=== PATIENT | female | born 1955 | race Caucasian/White ===

== ENCOUNTER 2018-02-16 06:11 | Day surgery (SDC) | payer MEDICARE ==
[~2018-02-16] VITALS: Ht 152.4 cm; Wt 102.2 kg
[2018-02-16 06:30] VITALS: BP 124/77
[2018-02-16] MEDS ORDERED: normal saline 1000ml 1,000 ML IV PRN (06:30)
[2018-02-16] MEDS ORDERED: BUPR100T16 PO (06:53)
[2018-02-16] MEDS ORDERED: ZOLP5TAB8 PO (06:53)
[2018-02-16] MEDS ORDERED: HYDR-4353 PO (06:53)
[2018-02-16] MEDS ORDERED: LISI40TA4 PO (06:53)
[2018-02-16] MEDS ORDERED: OXYB5TAB11 PO (06:53)
[2018-02-16] MEDS ORDERED: IBUP-1984 PO (06:53)
[2018-02-16] MEDS ORDERED: MODA200T48 PO (06:53)
[2018-02-16] MEDS ORDERED: PRAV40TA3 PO (06:53)
[2018-02-16] MEDS ORDERED: AMLO10TA PO (06:53)
[2018-02-16 07:18] LABS: ALBUMIN 3.4 G/DL (3.4-5.0); ANION GAP 8 (8-16); BLOOD UREA NITROGEN 17 MG/DL (7-18); BUN/CREATININE RATIO 18.9 (6.6-38.0); CALCIUM 8.8 MG/DL (8.5-10.1); CHLORIDE 108 MMOL/L (99-107); GLUCOSE 119 MG/DL (70-104); POTASSIUM 3.8 MMOL/L (3.5-5.1); SODIUM 142 MMOL/L (135-145); TOTAL CARBON DIOXIDE 26.1 MMOL/L (24-32); eGFR 63 ML/MIN
[2018-02-16 07:30] LABS: BASOPHILS % (AUTO) 0.4 % (0-1); EOSINOPHILS # (AUTO) 0.2 X10'3 (0-0.9); EOSINOPHILS % (AUTO) 2.4 % (0-6); LYMPHOCYTES # (AUTO) 2.5 X10'3 (1.1-4.8); LYMPHOCYTES % (AUTO) 32.6 % (21-51); MEAN CORPUSCULAR HEMOGLOBIN 30.8 PG (27.0-31.0); MEAN CORPUSCULAR HGB CONC 34.9 % (33.0-36.5); MEAN CORPUSCULAR VOLUME 88.2 FL (78-98); MEAN PLATELET VOLUME 9.1 FL (7.4-10.4); MONOCYTES # (AUTO) 0.9 X10'3 (0-0.9); MONOCYTES % (AUTO) 11.5 % (2-12); NEUTROPHILS # (AUTO) 4.2 X10'3 (1.8-7.7); NEUTROPHILS % (AUTO) 53.1 % (42-75); PRE OP HEMATOCRIT 39.9 % (35.0-45.0); PRE OP HEMOGLOBIN 13.9 g/dL (12.0-16.0); PRE OP PLATELET COUNT 192 X10'3 (140-440); RED BLOOD COUNT 4.52 X10'6 (4.20-5.60); RED CELL DISTRIBUTION WIDTH 14.5 % (11.5-14.5)
[2018-02-16] MEDS ORDERED: midazolam 2 mg/2 ml injection IV PRN (08:50)
[2018-02-16] MEDS ORDERED: LIDOcaine 1%/PF 5ML 10 MG/ML VIAL SQ ONE (08:50)
[2018-02-16] MEDS ORDERED: fentaNYL/PF 50MCG/1 ML 2ML syringe IV PRN (08:50)
[2018-02-16] MEDS ORDERED: heparin sodium, porcine/PF 100unit/ml 5ML syringe ICATH ONE (08:50)
[2018-02-16] MEDS ORDERED: heparin sodium, porcine/PF 100unit/ml 5ML syringe ONE (08:51)
[2018-02-16] MEDS ORDERED: fentaNYL/PF 50MCG/1 ML 2ML syringe ONE ×3 (08:52→09:42)
[2018-02-16] MEDS ORDERED: LIDOcaine 0.5% (5mg/ml) 50ml vial ONE (08:52)
[2018-02-16] MEDS ORDERED: midazolam 2 mg/2 ml injection ONE ×2 (08:52→09:18)
[2018-02-16] MEDS ORDERED: LIDOcaine 1% (10mg/ml) 2ml vial ONE (09:40)
[2018-02-16 10:20] VITALS: BP 143/56
[2018-02-16 10:39] VITALS: BP 103/51
[2018-02-16 10:54] VITALS: BP 123/67
[2018-02-16 11:09] VITALS: BP 138/72
[2018-02-16 11:39] VITALS: BP 132/65
== END 2018-02-16 11:50 | disposition home or self-care (01) ==
LOC: SSTAY O 06:11
PROVIDERS: ATTEND Radiology Diagnostic Radiology
DX: T82.594A Other mechanical complication of infusion catheter, initial encounter (principal); Y83.8 Other surgical procedures as the cause of abnormal reaction of the patient, or of later complication, without mention of misadventure at the time of the procedure; Y92.89 Other specified places as the place of occurrence of the external cause; G35 Multiple sclerosis; I10 Essential (primary) hypertension; G47.33 Obstructive sleep apnea (adult) (pediatric); M19.90 Unspecified osteoarthritis, unspecified site; E11.9 Type 2 diabetes mellitus without complications; Z72.89 Other problems related to lifestyle; Z86.73 Personal history of transient ischemic attack (TIA), and cerebral infarction without residual deficits; Z90.710 Acquired absence of both cervix and uterus; Z96.698 Presence of other orthopedic joint implants; Z91.040 Latex allergy status; Z91.018 Allergy to other foods; Z79.891 Long term (current) use of opiate analgesic; Z79.1 Long term (current) use of non-steroidal anti-inflammatories (NSAID); Z79.899 Other long term (current) drug therapy; Z98.890 Other specified postprocedural states; Z88.8 Allergy status to other drugs, medicaments and biological substances
CPT/HCPCS: 36415; 36561; 36590; 76937; 77001; 80048; 85025; 99152; 99153; C1788; C1894; J1642; J2001; J2250; J3010; J3490; J7030; A4620

== ENCOUNTER 2018-03-10 06:36 | Inpatient (IN) | payer MEDICARE ==
[2018-03-09 14:59] LABS: BASOPHILS # (AUTO) 0.1 X10'3 (0-0.2); EOSINOPHILS # (AUTO) 0.3 X10'3 (0-0.9); LYMPHOCYTES # (AUTO) 3.5 X10'3 (1.1-4.8); LYMPHOCYTES % (AUTO) 37.1 % (21-51); MEAN CORPUSCULAR HEMOGLOBIN 30.2 PG (27.0-31.0); MEAN CORPUSCULAR HGB CONC 33.6 % (33.0-36.5); MEAN CORPUSCULAR VOLUME 89.9 FL (78-98); MEAN PLATELET VOLUME 8.8 FL (7.4-10.4); MONOCYTES # (AUTO) 1.4 X10'3 (0-0.9); MONOCYTES % (AUTO) 14.5 % (2-12); NEUTROPHILS # (AUTO) 4.2 X10'3 (1.8-7.7); NEUTROPHILS % (AUTO) 44.4 % (42-75); PRE OP HEMATOCRIT 45.2 % (35.0-45.0); PRE OP HEMOGLOBIN 15.2 g/dL (12.0-16.0); PRE OP PLATELET COUNT 193 X10'3 (140-440); RED BLOOD COUNT 5.03 X10'6 (4.20-5.60); RED CELL DISTRIBUTION WIDTH 15.2 % (11.5-14.5)
[2018-03-09 15:14] LABS: ALBUMIN 4.2 G/DL (3.4-5.0); ALBUMIN/GLOBULIN RATIO 1.4 (1.1-1.5); ALKALINE PHOSPHATASE 107 IU/L (46-116); BLOOD UREA NITROGEN 22 MG/DL (7-18); BUN/CREATININE RATIO 16.5 (6.6-38.0); CHLORIDE 101 MMOL/L (99-107); CREATININE 1.33 MG/DL (0.40-0.90); PRE OP ALT 47 U/L (30-65); PRE OP ANION GAP 7 (8-16); PRE OP AST 26 U/L (10-37); PRE OP BILIRUB, TOTAL 0.6 MG/DL (0.0-1.0); PRE OP GLUCOSE 100 MG/DL (70-104); PRE OP POTASSIUM 4.3 MMOL/L (3.4-5.1); PRE OP SODIUM 137 MMOL/L (135-145); TOTAL CARBON DIOXIDE 28.9 MMOL/L (24-32); TOTAL PROTEIN 7.1 G/DL (6.4-8.2); eGFR 40 ML/MIN
[~2018-03-10] VITALS: Ht 152.4 cm; Wt 99.8 kg
[2018-03-10] VITALS (22 sets, daily range): BP systolic 104–140; BP diastolic 58–78
[~2018-03-10 06:36] MED LIST: AMLO10TA PO; BUPR100T16 PO; LISI40TA4 PO; MODA200T48 PO; MUPI22OI30 TP; NATA300V2 IV; OXYB5TAB11 PO; PRAV40TA3 PO; VANCOMYCIN INJ 1000 MG in NORMAL SALINE 250ml IV.SOLN IV ONE; ZOLP5TAB8 PO; cefazolin/dext.iso 2gm/100 ML IV ONE; famotidine 20mg tablet PO ONE; ringers solution, lacted 1,000 ML IV SCH; tranexamic acid inj. 1,000 MG in normal saline 100ml IV soln 90 ML IV ONE
[2018-03-10] MEDS ORDERED: ROPIVAcaine 0.5% (5mg/ml) 30ml vial ONE ×2 (08:43→09:29)
[2018-03-10] MEDS ORDERED: cloNIDine hcl/PF 100mcg/ml inj ONE (08:43)
[2018-03-10] MEDS ORDERED: midazolam 2 mg/2 ml injection ONE (08:49)
[2018-03-10] MEDS ORDERED: fentaNYL /PF 50mcg/ml 5ml ampule ONE (08:49)
[2018-03-10] MEDS ORDERED: propofol inj 20 ML IV ONE (08:53)
[2018-03-10] MEDS ORDERED: ondansetron/PF 4mg/2ml inj ONE (08:53)
[2018-03-10] MEDS ORDERED: dexamethasone sod phosphate 4mg/ml inj. ONE (08:53)
[2018-03-10] MEDS ORDERED: LIDOcaine 2% (20mg/ml) 5ml vial ONE (08:53)
[2018-03-10] MEDS ORDERED: rocuronium 10mg/ml inj IV ONE (08:54)
[2018-03-10] MEDS ORDERED: vancomycin 1,000mg inj ONE (09:28)
[2018-03-10] MEDS ORDERED: ketorolac trometh. 30mg/ml inj. ONE (09:29)
[2018-03-10] MEDS ORDERED: sevoflurane 250ml liquid IH ONE (09:40)
[2018-03-10] MEDS ORDERED: tranexamic acid inj. 1,000 MG in normal saline 100ml IV soln 90 ML IV ONE ×4 (09:50)
[2018-03-10] MEDS ORDERED: ringers solution, lacted 1,000 ML IV SCH (10:28)
[2018-03-10] MEDS ORDERED: labetalol 20mg/4ml (5mg/ml) syringe IV PRN (10:30)
[2018-03-10] MEDS ORDERED: hydrALAZINE 20mg/ml inj. IV PRN (10:30)
[2018-03-10] MEDS ORDERED: fentaNYL/PF 50MCG/1 ML 2ML syringe IV PRN (10:30)
[2018-03-10] MEDS ORDERED: ondansetron/PF 4mg/2ml inj IV PRN ×2 (10:30→12:40)
[2018-03-10] MEDS ORDERED: morphine 4 MG/ML inj SYRINge IV PRN (10:30)
[2018-03-10] MEDS ORDERED: acetaminophen 325mg tablet PO PRN (12:40)
[2018-03-10] MEDS ORDERED: bisacodyl 10mg suppository rectal RC PRN (12:40)
[2018-03-10] MEDS ORDERED: oxyCODONE IR 5mg (immed. release) tablet PO PRN (12:40)
[2018-03-10] MEDS ORDERED: magnesium hydroxide 30ml (MOM) UD suspension PO PRN (12:40)
[2018-03-10] MEDS ORDERED: diphenhydrAMINE 25mg capsule PO PRN ×2 (12:40)
[2018-03-10] MEDS ORDERED: mupirocin 2% ointment 22GM TP PRN (12:40)
[2018-03-10] MEDS: fentaNYL/PF 50MCG/1 ML 2ML syringe IV PRN ×2 (12:44→13:01)
[2018-03-10] MEDS: morphine 4 MG/ML inj SYRINge IV PRN ×2 (13:17→13:33)
[2018-03-10] MEDS ORDERED: ketorolac tromethamine 15mg/ml inj. IV SCH (14:00)
[2018-03-10] MEDS ORDERED: tranexamic acid inj. 1,000 MG in normal saline 100ml IV soln 100 ML IV ONE (15:30)
[2018-03-10] MEDS: gabapentin 300mg capsule PO SCH ×2 (15:32→21:34)
[2018-03-10] MEDS: potassium cl 20mEq in 1/2 NS 1,000 ML IV SCH ×2 (16:14→20:39)
[2018-03-10] MEDS: acetaminophen 325mg tablet PO SCH ×2 (16:16→21:33)
[2018-03-10] MEDS: ceFAZolin 1GM/D5W- ADD-VANTAGE 50 ML IV SCH (17:54)
[2018-03-10] MEDS: oxyCODONE IR 5mg (immed. release) tablet PO PRN ×2 (19:13→22:50)
[2018-03-10] MEDS ORDERED: vancomycin/NS 1 GM ADD-VANTAGE 250 ML IV SCH (20:00)
[2018-03-10] MEDS: sennosides 8.6mg tablet PO SCH (21:34)
[2018-03-10] MEDS: pravastatin 40mg tablet PO SCH (21:34)
[2018-03-10] MEDS: zolpidem 5mg tablet PO PRN (21:54)
[2018-03-10] MEDS ORDERED: glucagon, human recombinant 1mg kit SUBCUT PRN (23:30)
[2018-03-10] MEDS ORDERED: dextrose 50%-water 50ml dispensing syringe IV PRN ×2 (23:30)
[2018-03-10] MEDS ORDERED: dextrose ORAL solution 15 GM/59 ML bottle PO PRN ×2 (23:30)
[2018-03-11] MEDS: ceFAZolin 1GM/D5W- ADD-VANTAGE 50 ML IV SCH (00:11)
[2018-03-11] MEDS: insulin glargine (Lantus) pen - multi-dose SQ SCH ×2 (00:16→21:03)
[2018-03-11 02:00] VITALS: BP 106/53
[2018-03-11] MEDS: acetaminophen 325mg tablet PO SCH ×4 (02:21→19:35)
[2018-03-11] MEDS: potassium cl 20mEq in 1/2 NS 1,000 ML IV SCH ×3 (02:22→19:36)
[2018-03-11 04:53] LABS: BASOPHILS % (AUTO) 0.1 % (0-1); EOSINOPHILS % (AUTO) 0 % (0-6); HEMATOCRIT 33.5 % (35.0-45.0); HEMOGLOBIN 11.3 g/dl (12.0-16.0); LYMPHOCYTES % (AUTO) 13.2 % (21-51); MEAN CORPUSCULAR HEMOGLOBIN 30.3 PG (27.0-31.0); MEAN CORPUSCULAR HGB CONC 33.7 % (33.0-36.5); MEAN CORPUSCULAR VOLUME 89.9 FL (78-98); MEAN PLATELET VOLUME 9.2 FL (7.4-10.4); MONOCYTES # (AUTO) 1.5 X10'3 (0-0.9); MONOCYTES % (AUTO) 9.7 % (2-12); NEUTROPHILS # (AUTO) 11.8 X10'3 (1.8-7.7); PLATELET COUNT 144 X10'3 (140-440); RED BLOOD COUNT 3.73 X10'6 (4.20-5.60); RED CELL DISTRIBUTION WIDTH 14.8 % (11.5-14.5); WHITE BLOOD COUNT 15.3 X10'3 (4.5-11.0)
[2018-03-11 05:16] LABS: ANION GAP 6 (8-16); CHLORIDE 106 MMOL/L (99-107); POTASSIUM 4.7 MMOL/L (3.5-5.1); SODIUM 138 MMOL/L (135-145); TOTAL CARBON DIOXIDE 25.9 MMOL/L (24-32)
[2018-03-11] MEDS: oxyCODONE IR 5mg (immed. release) tablet PO PRN ×5 (05:31→21:54)
[2018-03-11 06:00] VITALS: BP 105/52
[2018-03-11] MEDS: amLODIPine 5mg tablet PO SCH (08:00)
[2018-03-11] MEDS ORDERED: buPROPion 100mg tablet PO SCH (08:00)
[2018-03-11] MEDS ORDERED: oxybutynin 5mg tablet PO SCH (08:00)
[2018-03-11] MEDS: modafinil 100mg tablet PO SCH (08:00)
[2018-03-11] MEDS: lisinopril 20mg tablet PO SCH (08:00)
[2018-03-11] MEDS: aspirin 325mg tablet PO SCH (08:35)
[2018-03-11] MEDS: gabapentin 300mg capsule PO SCH ×3 (08:37→20:52)
[2018-03-11] MEDS: buPROPion SR 150mg tablet PO SCH ×2 (08:38→19:35)
[2018-03-11] MEDS: insulin Lispro (HumaLOG) vial - multi-dose SQ SCH ×3 (08:52→18:43)
[2018-03-11 10:00] VITALS: BP 105/69
[2018-03-11] MEDS ORDERED: OXYB10TA PO (12:10)
[2018-03-11 17:00] VITALS: BP 116/58
[2018-03-11] MEDS: celeCOXIB 100mg capsule PO SCH (19:35)
[2018-03-11] MEDS: HYDROmorphone 1 mg/ml syringe IV PRN (19:43)
[2018-03-11] MEDS: pravastatin 40mg tablet PO SCH (20:53)
[2018-03-11] MEDS: sennosides 8.6mg tablet PO SCH (20:53)
[2018-03-11 22:00] VITALS: BP 108/50
[2018-03-12] MEDS: oxyCODONE IR 5mg (immed. release) tablet PO PRN ×6 (01:43→22:28)
[2018-03-12] MEDS: acetaminophen 325mg tablet PO SCH ×2 (01:43→07:25)
[2018-03-12] MEDS: HYDROmorphone 1 mg/ml syringe IV PRN ×3 (02:53→20:13)
[2018-03-12 05:59] LABS: BASOPHILS # (AUTO) 0.1 X10'3 (0-0.2); BASOPHILS % (AUTO) 0.5 % (0-1); EOSINOPHILS # (AUTO) 0.1 X10'3 (0-0.9); EOSINOPHILS % (AUTO) 0.8 % (0-6); HEMATOCRIT 33.3 % (35.0-45.0); HEMOGLOBIN 11.2 g/dl (12.0-16.0); LYMPHOCYTES # (AUTO) 3.2 X10'3 (1.1-4.8); LYMPHOCYTES % (AUTO) 28.8 % (21-51); MEAN CORPUSCULAR HEMOGLOBIN 30.5 PG (27.0-31.0); MEAN CORPUSCULAR HGB CONC 33.6 % (33.0-36.5); MEAN CORPUSCULAR VOLUME 90.8 FL (78-98); MEAN PLATELET VOLUME 9.8 FL (7.4-10.4); MONOCYTES # (AUTO) 1.2 X10'3 (0-0.9); NEUTROPHILS # (AUTO) 6.5 X10'3 (1.8-7.7); NEUTROPHILS % (AUTO) 58.9 % (42-75); PLATELET COUNT 143 X10'3 (140-440); RED BLOOD COUNT 3.66 X10'6 (4.20-5.60); RED CELL DISTRIBUTION WIDTH 15.3 % (11.5-14.5); WHITE BLOOD COUNT 11.1 X10'3 (4.5-11.0)
[2018-03-12 06:00] VITALS: BP 109/55
[2018-03-12] MEDS: celeCOXIB 100mg capsule PO SCH ×2 (07:24→20:10)
[2018-03-12] MEDS: buPROPion SR 150mg tablet PO SCH ×2 (07:25→20:10)
[2018-03-12] MEDS: gabapentin 300mg capsule PO SCH ×3 (07:25→20:10)
[2018-03-12] MEDS: oxybutynin 5mg tablet PO SCH ×2 (07:25→20:10)
[2018-03-12] MEDS: amLODIPine 5mg tablet PO SCH (07:26)
[2018-03-12] MEDS: modafinil 100mg tablet PO SCH (07:26)
[2018-03-12] MEDS: lisinopril 20mg tablet PO SCH (07:26)
[2018-03-12] MEDS: insulin Lispro (HumaLOG) vial - multi-dose SQ SCH ×2 (08:33→19:03)
[2018-03-12] MEDS: aspirin 325mg tablet PO SCH (08:36)
[2018-03-12 10:00] VITALS: BP 121/93
[2018-03-12] MEDS ORDERED: acetaminophen 325mg tablet PO PRN (12:40)
[2018-03-12 17:00] VITALS: BP 111/57
[2018-03-12] MEDS: pravastatin 40mg tablet PO SCH (20:10)
[2018-03-12] MEDS: sennosides 8.6mg tablet PO SCH (20:10)
[2018-03-12] MEDS: insulin glargine (Lantus) pen - multi-dose SQ SCH (21:25)
[2018-03-12 22:00] VITALS: BP 107/55
[2018-03-13] MEDS: oxyCODONE IR 5mg (immed. release) tablet PO PRN ×4 (01:59→20:27)
[2018-03-13 06:12] LABS: BASOPHILS # (AUTO) 0.2 X10'3 (0-0.2); BASOPHILS % (AUTO) 1.5 % (0-1); EOSINOPHILS # (AUTO) 0.3 X10'3 (0-0.9); EOSINOPHILS % (AUTO) 2.6 % (0-6); HEMATOCRIT 32.9 % (35.0-45.0); HEMOGLOBIN 11.1 g/dl (12.0-16.0); LYMPHOCYTES # (AUTO) 3.1 X10'3 (1.1-4.8); LYMPHOCYTES % (AUTO) 27.2 % (21-51); MEAN CORPUSCULAR HEMOGLOBIN 30.8 PG (27.0-31.0); MEAN CORPUSCULAR HGB CONC 33.8 % (33.0-36.5); MEAN PLATELET VOLUME 10.1 FL (7.4-10.4); MONOCYTES # (AUTO) 1.3 X10'3 (0-0.9); MONOCYTES % (AUTO) 11.7 % (2-12); NEUTROPHILS # (AUTO) 6.5 X10'3 (1.8-7.7); PLATELET COUNT 134 X10'3 (140-440); RED BLOOD COUNT 3.62 X10'6 (4.20-5.60); WHITE BLOOD COUNT 11.4 X10'3 (4.5-11.0)
[2018-03-13 06:50] VITALS: BP 113/64
[2018-03-13] MEDS: HYDROmorphone 1 mg/ml syringe IV PRN ×2 (07:03→21:23)
[2018-03-13 07:17] LABS: ANISOCYTOSIS 1+; NUCLEATED RED BLOOD CELLS 2 /100WBC (0-0); PLATELET ESTIMATE DECREASED; TOTAL CELLS COUNTED 100
[2018-03-13] MEDS: lisinopril 20mg tablet PO SCH (07:59)
[2018-03-13] MEDS: oxybutynin 5mg tablet PO SCH ×2 (07:59→20:25)
[2018-03-13] MEDS: buPROPion SR 150mg tablet PO SCH ×2 (08:00→20:26)
[2018-03-13] MEDS: aspirin 325mg tablet PO SCH (08:00)
[2018-03-13] MEDS: modafinil 100mg tablet PO SCH (08:00)
[2018-03-13] MEDS: celeCOXIB 100mg capsule PO SCH ×2 (08:00→20:25)
[2018-03-13] MEDS: gabapentin 300mg capsule PO SCH ×3 (08:01→20:25)
[2018-03-13] MEDS: amLODIPine 5mg tablet PO SCH (08:02)
[2018-03-13 10:00] VITALS: BP 125/58
[2018-03-13 18:00] VITALS: BP 129/65
[2018-03-13] MEDS: insulin glargine (Lantus) pen - multi-dose SQ SCH (20:24)
[2018-03-13] MEDS: pravastatin 40mg tablet PO SCH (20:25)
[2018-03-13] MEDS: zolpidem 5mg tablet PO PRN (20:25)
[2018-03-13] MEDS: sennosides 8.6mg tablet PO SCH (20:25)
[2018-03-13 21:38] VITALS: BP 122/64
[2018-03-14] MEDS: oxyCODONE IR 5mg (immed. release) tablet PO PRN ×3 (01:34→11:52)
[2018-03-14 05:00] VITALS: BP 106/61
[2018-03-14] MEDS: oxybutynin 5mg tablet PO SCH (08:30)
[2018-03-14] MEDS: buPROPion SR 150mg tablet PO SCH (08:30)
[2018-03-14] MEDS: lisinopril 20mg tablet PO SCH (08:30)
[2018-03-14] MEDS: celeCOXIB 100mg capsule PO SCH (08:30)
[2018-03-14] MEDS: aspirin 325mg tablet PO SCH (08:31)
[2018-03-14] MEDS: amLODIPine 5mg tablet PO SCH (08:31)
[2018-03-14] MEDS: gabapentin 300mg capsule PO SCH ×2 (08:31→11:51)
[2018-03-14] MEDS: HYDROmorphone 1 mg/ml syringe IV PRN ×2 (08:40→14:06)
[2018-03-14 10:00] VITALS: BP_SYST 100; BP_SYST 94; BP_DIAS 38; BP_DIAS 62
[2018-03-14] MEDS ORDERED: heparin sodium, porcine/PF 100unit/ml 5ML syringe ICATH ONE (18:15)
[2018-03-27] MEDS ORDERED: NATALIZUMAB 300 MG IV SCH (08:00)
== END 2018-03-14 18:25 | DRG 470 ==
LOC: PAS IN 06:36 → EDSTATUS 09:00 → ORTHO 4S 14:20
PROVIDERS: ADMIT Orthopaedic Surgery; ATTEND Orthopaedic Surgery
PROC: 8E0YXBZ Computer Assisted Procedure of Lower Extremity (ICD-10-PCS; 2018-03-10)
PROC: 8E0Y0CZ Robotic Assisted Procedure of Lower Extremity, Open Approach (ICD-10-PCS; 2018-03-10)
PROC: 3E0T3BZ Introduction of Anesthetic Agent into Peripheral Nerves and Plexi, Percutaneous Approach (ICD-10-PCS; 2018-03-10)
PROC: 0SRC0J9 Replacement of Right Knee Joint with Synthetic Substitute, Cemented, Open Approach (ICD-10-PCS; principal; 2018-03-10 09:45)
PROC: 5A09357 Assistance with Respiratory Ventilation, Less than 24 Consecutive Hours, Continuous Positive Airway Pressure (ICD-10-PCS; 2018-03-12)
PROC: 5A09357 Assistance with Respiratory Ventilation, Less than 24 Consecutive Hours, Continuous Positive Airway Pressure (ICD-10-PCS; 2018-03-13)
DX: M17.11 Unilateral primary osteoarthritis, right knee (principal); D62 Acute posthemorrhagic anemia; Z68.41 Body mass index [BMI] 40.0-44.9, adult; E78.5 Hyperlipidemia, unspecified; G47.30 Sleep apnea, unspecified; M25.761 Osteophyte, right knee; M21.161 Varus deformity, not elsewhere classified, right knee; E66.9 Obesity, unspecified; E11.22 Type 2 diabetes mellitus with diabetic chronic kidney disease; N18.3 Chronic kidney disease, stage 3 (moderate); G35 Multiple sclerosis; I12.9 Hypertensive chronic kidney disease with stage 1 through stage 4 chronic kidney disease, or unspecified chronic kidney disease; F32.9 Major depressive disorder, single episode, unspecified; Z98.891 History of uterine scar from previous surgery; Z90.710 Acquired absence of both cervix and uterus; Z90.49 Acquired absence of other specified parts of digestive tract; Z99.81 Dependence on supplemental oxygen; Z88.8 Allergy status to other drugs, medicaments and biological substances; Z91.040 Latex allergy status; Z79.899 Other long term (current) drug therapy; Z86.73 Personal history of transient ischemic attack (TIA), and cerebral infarction without residual deficits
CPT/HCPCS: 36415; 80051; 80053; 82948; 83036; 85025; 87070; 97110; 97116; 97161; 97530; A6455; A7000; C1713; C1758; C1776; G0378; J0690; J0735; J1100; J1170; J1642; J1815; J1885; J2001; J2250; J2270; J2405; J2704; J2795; J3010; J3370; J7030; J7120

== ENCOUNTER 2018-04-01 13:35 | Inpatient (IN) | payer MEDICARE ==
[~2018-04-01] VITALS: Ht 152.4 cm; Wt 100.5 kg
[~2018-04-01 13:35] MED LIST changes: +OXYB10TA PO; -OXYB5TAB11 PO; -VANCOMYCIN INJ 1000 MG in NORMAL SALINE 250ml IV.SOLN IV ONE; -cefazolin/dext.iso 2gm/100 ML IV ONE; -famotidine 20mg tablet PO ONE; -ringers solution, lacted 1,000 ML IV SCH; -tranexamic acid inj. 1,000 MG in normal saline 100ml IV soln 90 ML IV ONE
[2018-04-01] MEDS ORDERED: ondansetron 4mg rapidly disintigrating tab PO ONE (14:05)
[2018-04-01] MEDS ORDERED: meclizine 12.5mg tablet PO ONE (14:05)
[2018-04-01 14:47] LABS: BASOPHILS # (AUTO) 0.1 X10'3 (0-0.2); BASOPHILS % (AUTO) 0.5 % (0-1); EOSINOPHILS # (AUTO) 0.2 X10'3 (0-0.9); EOSINOPHILS % (AUTO) 1.9 % (0-6); HEMATOCRIT 38.3 % (35.0-45.0); HEMOGLOBIN 12.9 g/dl (12.0-16.0); LYMPHOCYTES # (AUTO) 2.5 X10'3 (1.1-4.8); LYMPHOCYTES % (AUTO) 20.9 % (21-51); MEAN CORPUSCULAR HEMOGLOBIN 29.9 PG (27.0-31.0); MEAN CORPUSCULAR HGB CONC 33.6 % (33.0-36.5); MEAN CORPUSCULAR VOLUME 88.8 FL (78-98); MEAN PLATELET VOLUME 8.7 FL (7.4-10.4); MONOCYTES # (AUTO) 1.2 X10'3 (0-0.9); MONOCYTES % (AUTO) 10.1 % (2-12); NEUTROPHILS # (AUTO) 7.8 X10'3 (1.8-7.7); NEUTROPHILS % (AUTO) 66.6 % (42-75); PLATELET COUNT 283 X10'3 (140-440); RED BLOOD COUNT 4.31 X10'6 (4.20-5.60); RED CELL DISTRIBUTION WIDTH 14.2 % (11.5-14.5); WHITE BLOOD COUNT 11.8 X10'3 (4.5-11.0)
[2018-04-01] MEDS ORDERED: morphine 4 MG/ML inj SYRINge IV ONE ×2 (15:35→16:50)
[2018-04-01 15:44] LABS: ALANINE AMINOTRANSFERASE 32 U/L (12-78); ALBUMIN 3.4 G/DL (3.4-5.0); ALKALINE PHOSPHATASE 124 IU/L (46-116); ANION GAP 11 (8-16); ASPARTATE AMINO TRANSFERASE 19 U/L (10-37); BILIRUBIN,TOTAL 0.5 MG/DL (0.1-1.0); BLOOD UREA NITROGEN 17 MG/DL (7-18); BUN/CREATININE RATIO 17.7 (6.6-38.0); CALCIUM 9.8 MG/DL (8.5-10.1); CHLORIDE 105 MMOL/L (99-107); CREATININE 0.96 MG/DL (0.40-0.90); GLUCOSE 123 MG/DL (70-104); POTASSIUM 4.2 MMOL/L (3.5-5.1); SODIUM 141 MMOL/L (135-145); TOTAL CARBON DIOXIDE 24.9 MMOL/L (24-32); TOTAL PROTEIN 6.8 G/DL (6.4-8.2); eGFR 59 ML/MIN
[2018-04-01 15:48] LABS: LIPASE 71 U/L (73-393); TROPONIN I < 0.04 NG/ML (0.0-0.05)
[2018-04-01 17:04] LABS: CLARITY,URINE CLOUDY (Clear); COLOR,URINE YELLOW (Yellow); GLUCOSE, URINE NEGATIVE (Neg); KETONES,URINE NEGATIVE (Neg); LEUKOCYTE ESTERASE ,URINE TRACE (Neg); NITRITES, URINE POSITIVE (Neg); OCCULT BLOOD,URINE NEGATIVE (Neg); PH,URINE 8.5 (4.8-8.0); PROTEIN,URINE NEGATIVE (Neg); UROBILINOGEN,URINE 0.2 E.U/dL (0.2-1.0)
[2018-04-01 17:05] LABS: UA COLLECTION TYPE FOLEY CATH
[2018-04-01 17:10] LABS: BACTERIA,URINE 4+ /HPF (Neg); MUCUS STRANDS NONE SEEN /LPF (Neg); RBC,URINE NONE SEEN /HPF (0-2); SQUAMOUS EPITHELIAL CELL,UR NONE SEEN /LPF (FEW); WBC CLUMPS,URINE FEW /HPF (NEGATIVE); WBC,URINE 30-50 /HPF (0-4)
[2018-04-01] MEDS ORDERED: CefTRIAXone 2gm/D5W 50ml 50 ML IV ONE (17:20)
[2018-04-01] MEDS ORDERED: iohexol 350MG/ML 100ml bottle IV ONE (18:23)
[2018-04-01] MEDS ORDERED: LORazepam 2 mg/ml vial IV ONE (20:00)
[2018-04-01] MEDS ORDERED: temazepam 15mg capsule PO PRN (21:00)
[2018-04-01] MEDS ORDERED: zolpidem 5mg tablet PO PRN (23:50)
[2018-04-01] MEDS ORDERED: metoclopramide 5 mg/ml inj IV PRN (23:50)
[2018-04-01] MEDS ORDERED: mag hydrox/Alum hydrox/simeth 30ml oral suspension PO PRN (23:50)
[2018-04-01] MEDS ORDERED: diphenhydrAMINE 25mg capsule PO PRN (23:50)
[2018-04-01] MEDS ORDERED: ondansetron/PF 4mg/2ml inj IV PRN (23:50)
[2018-04-01] MEDS ORDERED: bisacodyl 10mg suppository rectal RC PRN (23:50)
[2018-04-01] MEDS ORDERED: acetaminophen 650mg rectal suppository RC PRN (23:50)
[2018-04-01] MEDS ORDERED: HYDROmorphone 1 mg/ml syringe IV PRN (23:50)
[2018-04-01] MEDS ORDERED: diphenhydrAMINE 50 mg/ml inj IV PRN (23:50)
[2018-04-01] MEDS ORDERED: acetaminophen 325mg tablet PO PRN (23:50)
[2018-04-01] MEDS ORDERED: mupirocin 2% nasal ointment 1gm UD NS PRN (23:50)
[2018-04-01] MEDS ORDERED: magnesium hydroxide 30ml (MOM) UD suspension PO PRN (23:50)
[2018-04-02 01:00] LABS: MAGNESIUM 2.2 MG/DL (1.5-2.4); PHOSPHORUS 1.5 MG/DL (2.3-4.5)
[2018-04-02] MEDS: normal saline 1000ml 1,000 ML IV SCH ×3 (02:08→13:05)
[2018-04-02] MEDS: heparin, porcine 5000 units/ml vial SQ SCH ×3 (02:09→21:22)
[2018-04-02] MEDS ORDERED: ketorolac trometh. 30mg/ml inj. IV PRN (03:50)
[2018-04-02] MEDS: CefTRIAXone/D5W-Rocephin 1gm 50 ML IV SCH ×2 (07:59→21:18)
[2018-04-02] MEDS: amLODIPine 5mg tablet PO SCH (08:00)
[2018-04-02] MEDS: oxybutynin 5mg tablet PO SCH ×2 (08:00→21:23)
[2018-04-02] MEDS: Neutra Phos packet PO SCH ×3 (08:00→21:21)
[2018-04-02] MEDS ORDERED: buPROPion SR 150mg tablet PO SCH (08:00)
[2018-04-02] MEDS: docusate sod 100mg capsule PO SCH ×2 (08:03→21:22)
[2018-04-02] MEDS: lisinopril 20mg tablet PO SCH (08:03)
[2018-04-02] MEDS: morphine 2 MG/ML inj. syringe IV PRN (08:07)
[2018-04-02 09:08] LABS: BASOPHILS % (AUTO) 0.5 % (0-1); EOSINOPHILS # (AUTO) 0.3 X10'3 (0-0.9); EOSINOPHILS % (AUTO) 2.8 % (0-6); HEMATOCRIT 34.8 % (35.0-45.0); HEMOGLOBIN 11.8 g/dl (12.0-16.0); LYMPHOCYTES # (AUTO) 2.8 X10'3 (1.1-4.8); LYMPHOCYTES % (AUTO) 31.2 % (21-51); MEAN CORPUSCULAR HEMOGLOBIN 29.9 PG (27.0-31.0); MEAN CORPUSCULAR HGB CONC 33.8 % (33.0-36.5); MEAN CORPUSCULAR VOLUME 88.5 FL (78-98); MEAN PLATELET VOLUME 8.7 FL (7.4-10.4); MONOCYTES % (AUTO) 11.5 % (2-12); NEUTROPHILS # (AUTO) 4.9 X10'3 (1.8-7.7); PLATELET COUNT 255 X10'3 (140-440); RED BLOOD COUNT 3.94 X10'6 (4.20-5.60); RED CELL DISTRIBUTION WIDTH 14.9 % (11.5-14.5); WHITE BLOOD COUNT 9.1 X10'3 (4.5-11.0)
[2018-04-02 09:24] LABS: ALANINE AMINOTRANSFERASE 105 U/L (12-78); ALKALINE PHOSPHATASE 208 IU/L (46-116); ANION GAP 9 (8-16); ASPARTATE AMINO TRANSFERASE 64 U/L (10-37); BILIRUBIN,TOTAL 0.4 MG/DL (0.1-1.0); BLOOD UREA NITROGEN 17 MG/DL (7-18); BUN/CREATININE RATIO 14.9 (6.6-38.0); CALCIUM 8.9 MG/DL (8.5-10.1); CHLORIDE 106 MMOL/L (99-107); CHOL/HDL RATIO 2.6 (0.00-4.99); CHOLESTEROL 121 MG/DL (0-200); CREATININE 1.14 MG/DL (0.40-0.90); GLUCOSE 118 MG/DL (70-104); HDL CHOLESTEROL 46 MG/DL (35-60); LDL CHOLESTEROL 58 MG/DL (50-100); POTASSIUM 4.3 MMOL/L (3.5-5.1); SODIUM 141 MMOL/L (135-145); TOTAL CARBON DIOXIDE 25.6 MMOL/L (24-32); TRIGLYCERIDES 97 MG/DL (20-135); eGFR 48 ML/MIN
[2018-04-02 09:25] LABS: PARTIAL THROMBOPLASTIN TIME 29 SECONDS (22-32); PROTHROMBIN TIME 10.3 SECONDS (9.0-12.0)
[2018-04-02 12:10] VITALS: BP 111/61
[2018-04-02] MEDS: HYDROcodone/acetaminophen 10/325mg tab PO PRN ×2 (13:05→18:03)
[2018-04-02] MEDS ORDERED: BUPR300T86 PO (13:23)
[2018-04-02 20:00] VITALS: BP 120/58
[2018-04-02] MEDS: pravastatin 40mg tablet PO SCH (21:23)
[2018-04-02] MEDS: buPROPion SR 150mg tablet PO SCH (21:23)
[2018-04-03] VITALS: BP 118/55
[2018-04-03] MEDS: morphine 2 MG/ML inj. syringe IV PRN (00:24)
[2018-04-03] MEDS: normal saline 1000ml 1,000 ML IV SCH ×3 (00:25→23:00)
[2018-04-03] MEDS: HYDROcodone/acetaminophen 10/325mg tab PO PRN ×4 (02:41→19:49)
[2018-04-03 06:18] LABS: BASOPHILS % (AUTO) 0.2 % (0-1); EOSINOPHILS # (AUTO) 0.4 X10'3 (0-0.9); EOSINOPHILS % (AUTO) 5.9 % (0-6); HEMATOCRIT 31.7 % (35.0-45.0); HEMOGLOBIN 10.5 g/dl (12.0-16.0); LYMPHOCYTES # (AUTO) 2.2 X10'3 (1.1-4.8); LYMPHOCYTES % (AUTO) 30.1 % (21-51); MEAN CORPUSCULAR HEMOGLOBIN 29.8 PG (27.0-31.0); MEAN CORPUSCULAR HGB CONC 33.1 % (33.0-36.5); MEAN CORPUSCULAR VOLUME 89.9 FL (78-98); MONOCYTES # (AUTO) 0.9 X10'3 (0-0.9); MONOCYTES % (AUTO) 12.2 % (2-12); NEUTROPHILS # (AUTO) 3.8 X10'3 (1.8-7.7); NEUTROPHILS % (AUTO) 51.6 % (42-75); PLATELET COUNT 220 X10'3 (140-440); RED BLOOD COUNT 3.52 X10'6 (4.20-5.60); RED CELL DISTRIBUTION WIDTH 14.8 % (11.5-14.5); WHITE BLOOD COUNT 7.4 X10'3 (4.5-11.0)
[2018-04-03 06:34] LABS: ALANINE AMINOTRANSFERASE 69 U/L (12-78); ALBUMIN 2.8 G/DL (3.4-5.0); ALBUMIN/GLOBULIN RATIO 1.1 (1.1-1.5); ALKALINE PHOSPHATASE 153 IU/L (46-116); ANION GAP 7 (8-16); ASPARTATE AMINO TRANSFERASE 30 U/L (10-37); BILIRUBIN,TOTAL 0.3 MG/DL (0.1-1.0); BLOOD UREA NITROGEN 11 MG/DL (7-18); BUN/CREATININE RATIO 11.8 (6.6-38.0); CALCIUM 8.6 MG/DL (8.5-10.1); CHLORIDE 109 MMOL/L (99-107); CREATININE 0.93 MG/DL (0.40-0.90); GLUCOSE 99 MG/DL (70-104); SODIUM 143 MMOL/L (135-145); TOTAL CARBON DIOXIDE 26.9 MMOL/L (24-32); TOTAL PROTEIN 5.4 G/DL (6.4-8.2); eGFR 61 ML/MIN
[2018-04-03 08:06] VITALS: BP 127/64
[2018-04-03] MEDS: CefTRIAXone/D5W-Rocephin 1gm 50 ML IV SCH ×2 (09:28→19:44)
[2018-04-03] MEDS: docusate sod 100mg capsule PO SCH ×2 (09:30→19:44)
[2018-04-03] MEDS: oxybutynin 5mg tablet PO SCH ×2 (09:30→19:44)
[2018-04-03] MEDS: Neutra Phos packet PO SCH ×3 (09:30→20:57)
[2018-04-03] MEDS: amLODIPine 5mg tablet PO SCH (09:31)
[2018-04-03] MEDS: buPROPion SR 150mg tablet PO SCH ×2 (09:31→19:44)
[2018-04-03] MEDS: lisinopril 20mg tablet PO SCH (09:32)
[2018-04-03] MEDS: heparin, porcine 5000 units/ml vial SQ SCH ×2 (09:36→19:45)
[2018-04-03 12:35] VITALS: BP 115/68
[2018-04-03] MEDS: lactobacillus rhamnosus 10,000 MMU CELLS/CAPSULE PO SCH (19:44)
[2018-04-03] MEDS: pravastatin 40mg tablet PO SCH (20:57)
[2018-04-04] VITALS: BP 121/68
[2018-04-04] MEDS: HYDROcodone/acetaminophen 10/325mg tab PO PRN (02:34)
[2018-04-04 04:22] LABS: BASOPHILS # (AUTO) 0.2 X10'3 (0-0.2); BASOPHILS % (AUTO) 2.2 % (0-1); EOSINOPHILS # (AUTO) 0.6 X10'3 (0-0.9); EOSINOPHILS % (AUTO) 7.3 % (0-6); HEMATOCRIT 36.1 % (35.0-45.0); HEMOGLOBIN 11.7 g/dl (12.0-16.0); LYMPHOCYTES % (AUTO) 24.8 % (21-51); MEAN CORPUSCULAR HEMOGLOBIN 29.1 PG (27.0-31.0); MEAN CORPUSCULAR HGB CONC 32.4 % (33.0-36.5); MEAN CORPUSCULAR VOLUME 89.8 FL (78-98); MEAN PLATELET VOLUME 8.5 FL (7.4-10.4); MONOCYTES # (AUTO) 0.9 X10'3 (0-0.9); MONOCYTES % (AUTO) 10.7 % (2-12); NEUTROPHILS # (AUTO) 4.5 X10'3 (1.8-7.7); PLATELET COUNT 231 X10'3 (140-440); RED BLOOD COUNT 4.02 X10'6 (4.20-5.60); RED CELL DISTRIBUTION WIDTH 14.8 % (11.5-14.5); WHITE BLOOD COUNT 8.2 X10'3 (4.5-11.0)
[2018-04-04 04:37] LABS: ALANINE AMINOTRANSFERASE 57 U/L (12-78); ALBUMIN 3.2 G/DL (3.4-5.0); ALBUMIN/GLOBULIN RATIO 1.1 (1.1-1.5); ALKALINE PHOSPHATASE 167 IU/L (46-116); ANION GAP 8 (8-16); ASPARTATE AMINO TRANSFERASE 23 U/L (10-37); BILIRUBIN,TOTAL 0.4 MG/DL (0.1-1.0); BLOOD UREA NITROGEN 8 MG/DL (7-18); BUN/CREATININE RATIO 8.8 (6.6-38.0); CALCIUM 8.9 MG/DL (8.5-10.1); CHLORIDE 106 MMOL/L (99-107); CREATININE 0.91 MG/DL (0.40-0.90); GLUCOSE 113 MG/DL (70-104); POTASSIUM 3.7 MMOL/L (3.5-5.1); SODIUM 140 MMOL/L (135-145); TOTAL CARBON DIOXIDE 25.9 MMOL/L (24-32); TOTAL PROTEIN 6.1 G/DL (6.4-8.2); eGFR 62 ML/MIN
[2018-04-04 07:22] VITALS: BP 130/65
[2018-04-04] MEDS: docusate sod 100mg capsule PO SCH (08:00)
[2018-04-04] MEDS: CefTRIAXone/D5W-Rocephin 1gm 50 ML IV SCH (08:15)
[2018-04-04] MEDS: Neutra Phos packet PO SCH ×2 (08:16→13:00)
[2018-04-04] MEDS: oxybutynin 5mg tablet PO SCH (08:16)
[2018-04-04] MEDS: amLODIPine 5mg tablet PO SCH (08:16)
[2018-04-04] MEDS: lactobacillus rhamnosus 10,000 MMU CELLS/CAPSULE PO SCH (08:16)
[2018-04-04] MEDS: buPROPion SR 150mg tablet PO SCH (08:17)
[2018-04-04] MEDS: lisinopril 20mg tablet PO SCH (08:17)
[2018-04-04] MEDS: heparin, porcine 5000 units/ml vial SQ SCH (08:18)
[2018-04-04 11:30] VITALS: BP 146/62
[2018-04-04] MEDS: normal saline 1000ml 1,000 ML IV SCH (11:45)
[2018-04-04] MEDS ORDERED: LEVO500T89 PO (12:52)
[2018-04-04] MEDS ORDERED: COL100C PO (12:52)
[2018-04-04] MEDS ORDERED: LACT1CAP26 PO (12:52)
[2018-04-04] MEDS ORDERED: heparin sodium, porcine/PF 100unit/ml 5ML syringe IV ONE (13:25)
[2020-04-03] MEDS ORDERED: NATALIZUMAB 300 MG IV SCH (10:00)
== END 2018-04-04 14:30 | disposition home health service (06) | DRG 690 ==
LOC: ER 13:35 → ED HOLD 23:48 → SUR 3N 04-02 11:59
PROVIDERS: ADMIT Family Medicine; ATTEND Family Medicine
PROC: B32T1ZZ Computerized Tomography (CT Scan) of Left Pulmonary Artery using Low Osmolar Contrast (ICD-10-PCS; principal; 2018-04-01)
PROC: B3201ZZ Computerized Tomography (CT Scan) of Thoracic Aorta using Low Osmolar Contrast (ICD-10-PCS; 2018-04-01)
PROC: B32S1ZZ Computerized Tomography (CT Scan) of Right Pulmonary Artery using Low Osmolar Contrast (ICD-10-PCS; 2018-04-01)
DX: N39.0 Urinary tract infection, site not specified (principal); Z68.41 Body mass index [BMI] 40.0-44.9, adult; E83.39 Other disorders of phosphorus metabolism; B96.4 Proteus (mirabilis) (morganii) as the cause of diseases classified elsewhere; E11.9 Type 2 diabetes mellitus without complications; E66.01 Morbid (severe) obesity due to excess calories; E78.5 Hyperlipidemia, unspecified; F32.9 Major depressive disorder, single episode, unspecified; F41.9 Anxiety disorder, unspecified; G35 Multiple sclerosis; N31.9 Neuromuscular dysfunction of bladder, unspecified; G47.00 Insomnia, unspecified; G47.30 Sleep apnea, unspecified; I10 Essential (primary) hypertension; G89.29 Other chronic pain; M54.9 Dorsalgia, unspecified; Z96.651 Presence of right artificial knee joint; Z90.710 Acquired absence of both cervix and uterus; Z91.040 Latex allergy status; Z88.8 Allergy status to other drugs, medicaments and biological substances; Z91.018 Allergy to other foods; Z79.899 Other long term (current) drug therapy
CPT/HCPCS: 36415; 71045; 71275; 73700; 74176; 80053; 80061; 81001; 82948; 83605; 83690; 83735; 83880; 84100; 84145; 84443; 84484; 85025; 85610; 85730; 87040; 87070; 87077; 87088; 87186; 93005; 96365; 96375; 96376; 97110; 97116; 97162; 99285; G0378; J0696; J1642; J1644; J1885; J2060; J2270; J2405; J2765; J7030; J8597; Q9967

== ENCOUNTER 2018-06-28 06:54 | Inpatient (IN) | payer MEDICARE ==
--- NOTE | 2018-06-23 15:30 | NUR ---
UNABLE TO DO MRSA SWAB ON PT AT PREOP APPT SHE HAD ALREADY BEGAN USING [employer] INTRANASALLY PRIOR TO APPT.
[2018-06-23 16:20] LABS: BASOPHILS % (AUTO) 0.3 % (0-1); EOSINOPHILS # (AUTO) 0.3 X10'3 (0-0.9); EOSINOPHILS % (AUTO) 2.8 % (0-6); LYMPHOCYTES # (AUTO) 3.3 X10'3 (1.1-4.8); LYMPHOCYTES % (AUTO) 35.1 % (21-51); MEAN CORPUSCULAR HEMOGLOBIN 27.3 PG (27.0-31.0); MEAN CORPUSCULAR HGB CONC 32.3 g/dL (33.0-36.5); MEAN CORPUSCULAR VOLUME 84.8 FL (78-98); MEAN PLATELET VOLUME 9.8 FL (7.4-10.4); MONOCYTES % (AUTO) 10.7 % (2-12); NEUTROPHILS # (AUTO) 4.8 X10'3 (1.8-7.7); NEUTROPHILS % (AUTO) 51.1 % (42-75); PRE OP HEMATOCRIT 43.9 % (35.0-45.0); PRE OP HEMOGLOBIN 14.2 g/dL (12.0-16.0); PRE OP PLATELET COUNT 198 X10'3 (140-440); RED BLOOD COUNT 5.18 X10'6 (4.20-5.60); RED CELL DISTRIBUTION WIDTH 14.7 % (11.5-14.5)
[2018-06-23 16:24] LABS: ALBUMIN 3.7 G/DL (3.4-5.0); ALBUMIN/GLOBULIN RATIO 1.4 (1.1-1.5); ALKALINE PHOSPHATASE 106 IU/L (46-116); BLOOD UREA NITROGEN 19 MG/DL (7-18); CHLORIDE 107 MMOL/L (99-107); CREATININE 0.95 MG/DL (0.40-0.90); PRE OP ALT 30 U/L (30-65); PRE OP ANION GAP 10 (8-16); PRE OP AST 20 U/L (10-37); PRE OP BILIRUB, TOTAL 0.5 MG/DL (0.0-1.0); PRE OP GLUCOSE 91 MG/DL (70-104); PRE OP POTASSIUM 3.5 MMOL/L (3.4-5.1); PRE OP SODIUM 142 MMOL/L (135-145); TOTAL PROTEIN 6.4 G/DL (6.4-8.2); eGFR 59 ML/MIN
[2018-06-23 16:36] LABS: PRE OP PROTIME 9.9 SECONDS (9.0-12.0)
[2018-06-23 16:42] LABS: HEMOGLOBIN A1C 6.1 % (4.5-6.2)
[2018-06-23 16:52] LABS: CLARITY,URINE CLOUDY (Clear); COLOR,URINE YELLOW (Yellow); GLUCOSE, URINE NEGATIVE (Neg); KETONES,URINE NEGATIVE (Neg); LEUKOCYTE ESTERASE ,URINE MODERATE (Neg); NITRITES, URINE POSITIVE (Neg); OCCULT BLOOD,URINE TRACE-INTACT (Neg); PH,URINE 5.5 (4.8-8.0); PROTEIN,URINE NEGATIVE (Neg); UROBILINOGEN,URINE 0.2 E.U/dL (0.2-1.0)
[2018-06-23 16:56] LABS: UA COLLECTION TYPE CLN CATCH MIDSTREAM
[2018-06-23 17:01] LABS: BACTERIA,URINE 4+ /HPF (Neg); MUCUS STRANDS MANY /LPF (Neg); SQUAMOUS EPITHELIAL CELL,UR MANY /LPF (FEW)
[2018-06-23 17:02] LABS: RBC,URINE 0-2 /HPF (0-2); WBC,URINE TNTC /HPF (0-4)
[2018-06-28] VITALS (17 sets, daily range): BP systolic 114–151; BP diastolic 56–91
[~2018-06-28] VITALS: Ht 152.4 cm; Wt 91.4 kg
[~2018-06-28 06:54] MED LIST changes: -AMLO10TA PO; -BUPR100T16 PO; +BUPR300T86 PO; +HYDR-4353 PO; +IBUP-1985 PO; -MODA200T48 PO; +famotidine 20mg tablet PO ONE; +ringers solution, lacted 1,000 ML IV SCH
[2018-06-28] MEDS ORDERED: cefazolin/dext.iso 2gm/50ml 50 ML IV ONE (07:29)
[2018-06-28] MEDS ORDERED: tranexamic acid inj. 960 MG in normal saline 100ml IV soln 100 ML IV ONE ×3 (07:30→16:00)
[2018-06-28] MEDS ORDERED: VANCOMYCIN INJ 1000 MG in NORMAL SALINE 250ml IV.SOLN IV ONE (07:30)
[2018-06-28] MEDS ORDERED: chlorhexidine gluc 0.4% **topical ** 120ml btl. TP ONE (07:55)
[2018-06-28] MEDS ORDERED: LIDOcaine/PRILOcaine 5gm cream TP ONE (08:00)
[2018-06-28] MEDS ORDERED: midazolam 2 mg/2 ml injection ONE (10:49)
[2018-06-28] MEDS ORDERED: fentaNYL /PF 50mcg/ml 5ml ampule ONE (10:50)
[2018-06-28] MEDS ORDERED: vancomycin 1,000mg inj ONE (10:51)
[2018-06-28] MEDS ORDERED: ePHEDrine 50MG/ML INJ. ONE (11:08)
[2018-06-28] MEDS ORDERED: sevoflurane 250ml liquid IH ONE (11:08)
[2018-06-28] MEDS ORDERED: rocuronium 10mg/ml inj IV ONE (11:29)
[2018-06-28] MEDS ORDERED: propofol inj 20 ML IV ONE (11:29)
[2018-06-28] MEDS ORDERED: esmolol inj. 10 ML IV ONE (11:29)
[2018-06-28] MEDS ORDERED: LIDOcaine 2% (20mg/ml) 5ml vial ONE (11:29)
[2018-06-28] MEDS ORDERED: acetaminophen 325mg tablet PO PRN (12:55)
[2018-06-28] MEDS ORDERED: ondansetron/PF 4mg/2ml inj IV PRN ×2 (12:55→13:25)
[2018-06-28] MEDS ORDERED: diphenhydrAMINE 25mg capsule PO PRN ×2 (12:55)
[2018-06-28] MEDS ORDERED: oxyCODONE IR 5mg (immed. release) tablet PO PRN (12:55)
[2018-06-28] MEDS ORDERED: HYDROmorphone inj. 0.5 MG/0.5 ML DISP.SYRIN IV PRN (12:55)
[2018-06-28] MEDS ORDERED: mupirocin 2% ointment 22GM TP PRN (12:55)
[2018-06-28] MEDS ORDERED: bisacodyl 10mg suppository rectal RC PRN (12:55)
[2018-06-28 12:59] LABS: APPEARANCE,SYNOVIAL FLUID CLOUDY; COLOR,SYNOVIAL FLUID OTHER; SYN RBC 7650 /CU MM (0); SYN WBC 2850 /CU MM (0-200)
--- NOTE | 2018-06-28 13:08 | NUR ---
ARRIVED IN PACU VIA BED FROM OR WITH O2 ON AND DR WATKINS IN ATTENDANCE. REPORT RECEIVED. PT C/O PAIN, MEDICATED BY DR WATKINS ON ARRIVAL. VS STABLE. FEET WARM STRONG PALPABLE PEDAL PULSES. BRACE ON LOWER LED LOCKED IN EXTENSION, SET BY OR.
[2018-06-28] MEDS ORDERED: meperidine/PF 25mg/ml syringe ONE (13:20)
[2018-06-28] MEDS ORDERED: morphine 4 MG/ML inj SYRINge IV PRN ×2 (13:25)
[2018-06-28] MEDS ORDERED: proCHLORperazine 10 MG/2 ml inj IV PRN (13:25)
[2018-06-28] MEDS ORDERED: meperidine/PF 25mg/ml syringe IV PRN ×2 (13:25)
[2018-06-28] MEDS ORDERED: ringers solution, lacted 1,000 ML IV SCH (13:25)
[2018-06-28] MEDS: meperidine/PF 25mg/ml syringe IV PRN ×3 (13:38→13:55)
--- NOTE | 2018-06-28 13:38 | NUR ---
CONT TO MEDICATE PT FOR PAIN
[2018-06-28] MEDS ORDERED: ondansetron/PF 4mg/2ml inj ONE (13:48)
[2018-06-28] MEDS ORDERED: neostigmine methylsulfate 1 MG/ML 10ml vial ONE (13:48)
[2018-06-28] MEDS ORDERED: glycopyrrolate 0.2mg/ml inj ONE (13:48)
[2018-06-28] MEDS: oxyCODONE IR 5mg (immed. release) tablet PO PRN ×2 (13:56→19:41)
--- NOTE | 2018-06-28 14:08 | NUR ---
CONTINUE TO MEDICATE FOR PAIN. VS STABLE
--- NOTE | 2018-06-28 14:18 | NUR ---
TO FLOOR ROOM 4023B VS STABLE ON ARRIVAL. CHAU IN ROOM TO ACCEPT PT
[2018-06-28] MEDS: acetaminophen 325mg tablet PO SCH ×2 (15:00→19:41)
[2018-06-28] MEDS ORDERED: tranexamic acid inj. 900 MG in normal saline 100ml IV soln 100 ML IV ONE (15:55)
[2018-06-28] MEDS ORDERED: non-formulary drug (Ibuprofen 1 TAB) PO SCH (16:00)
[2018-06-28] MEDS: ibuprofen 200mg tablet PO SCH (16:50)
[2018-06-28] MEDS: gabapentin 300mg capsule PO SCH ×2 (16:59→19:40)
[2018-06-28] MEDS: ceFAZolin 1GM/D5W- ADD-VANTAGE 50 ML IV SCH (17:31)
--- NOTE | 2018-06-28 18:30 | NUR ---
REPORT TO MIRTHA GOODSON
[2018-06-28] MEDS: buPROPion SR 150mg tablet PO SCH (19:40)
[2018-06-28] MEDS: oxybutynin 5mg tablet PO SCH (19:41)
[2018-06-28] MEDS: potassium cl 20mEq in 1/2 NS 1,000 ML IV SCH ×2 (19:42→20:53)
[2018-06-28] MEDS ORDERED: vancomycin/NS 1 GM ADD-VANTAGE 250 ML IV SCH (20:00)
[2018-06-28] MEDS: mupirocin 2% ointment 22GM TP SCH ×2 (20:00→21:29)
[2018-06-28] MEDS: sennosides 8.6mg tablet PO SCH (22:33)
[2018-06-28] MEDS: pravastatin 40mg tablet PO SCH (22:33)
[2018-06-28] MEDS: zolpidem 5mg tablet PO PRN (22:33)
[2018-06-29] MEDS: ceFAZolin 1GM/D5W- ADD-VANTAGE 50 ML IV SCH (00:23)
[2018-06-29] MEDS: oxyCODONE IR 5mg (immed. release) tablet PO PRN ×4 (00:24→22:05)
[2018-06-29] MEDS: ibuprofen 200mg tablet PO SCH ×3 (00:24→16:07)
[2018-06-29] MEDS: acetaminophen 325mg tablet PO SCH ×4 (02:00→20:20)
[2018-06-29] MEDS: potassium cl 20mEq in 1/2 NS 1,000 ML IV SCH ×3 (04:53→22:08)
[2018-06-29 06:00] VITALS: BP 128/66
[2018-06-29 06:16] LABS: BASOPHILS # (AUTO) 0.1 X10'3 (0-0.2); BASOPHILS % (AUTO) 0.5 % (0-1); EOSINOPHILS % (AUTO) 0.3 % (0-6); HEMATOCRIT 37.3 % (35.0-45.0); HEMOGLOBIN 12.2 g/dl (12.0-16.0); LYMPHOCYTES # (AUTO) 2.8 X10'3 (1.1-4.8); LYMPHOCYTES % (AUTO) 24.3 % (21-51); MEAN CORPUSCULAR HEMOGLOBIN 27.5 PG (27.0-31.0); MEAN CORPUSCULAR HGB CONC 32.7 g/dL (33.0-36.5); MEAN PLATELET VOLUME 9.4 FL (7.4-10.4); MONOCYTES # (AUTO) 1.2 X10'3 (0-0.9); MONOCYTES % (AUTO) 10.4 % (2-12); NEUTROPHILS # (AUTO) 7.4 X10'3 (1.8-7.7); NEUTROPHILS % (AUTO) 64.5 % (42-75); PLATELET COUNT 159 X10'3 (140-440); RED BLOOD COUNT 4.44 X10'6 (4.20-5.60); RED CELL DISTRIBUTION WIDTH 16.1 % (11.5-14.5); WHITE BLOOD COUNT 11.5 X10'3 (4.5-11.0)
--- NOTE | 2018-06-29 06:20 | NUR ---
Patient in room ORTHO 4017. I have received report from KELLEE Parish and had the opportunity to ask questions and assume patient care.
[2018-06-29 06:30] LABS: ANION GAP 8 (8-16); CHLORIDE 104 MMOL/L (99-107); SODIUM 138 MMOL/L (135-145); TOTAL CARBON DIOXIDE 25.9 MMOL/L (24-32)
--- NOTE | 2018-06-29 06:31 | NUR ---
reported to days. noted pt working with PT. hinge lock brace.
[2018-06-29 07:35] VITALS: BP 120/55
[2018-06-29] MEDS: oxybutynin 5mg tablet PO SCH ×2 (07:38→20:19)
[2018-06-29] MEDS: gabapentin 300mg capsule PO SCH ×3 (07:39→20:20)
[2018-06-29] MEDS: buPROPion SR 150mg tablet PO SCH ×2 (07:40→20:19)
[2018-06-29] MEDS: lisinopril 20mg tablet PO SCH (07:41)
[2018-06-29] MEDS: aspirin 325mg tablet PO SCH (07:48)
[2018-06-29] MEDS ORDERED: BUPROPION HCL PO SCH (08:00)
[2018-06-29] MEDS ORDERED: non-formulary drug (Oxybutynin Chloride (Ditropan Xl) 1 TAB) PO SCH (08:00)
[2018-06-29] MEDS ORDERED: non-formulary drug (Lisinopril* 1 TAB) PO SCH (08:00)
[2018-06-29] MEDS: mupirocin 2% ointment 22GM TP SCH ×2 (08:00→20:00)
[2018-06-29 10:00] VITALS: BP 128/61
--- NOTE | 2018-06-29 11:20 | NUR ---
Student documentation: I have reviewed all interventions, assessments performed and documented by Keira CANALES [facility]. Student Medication Administration: For this medication-pass time frame, all medication were reviewed, dispensed, administered and documented per hospital policy by Keira Ny [facility].
--- NOTE | 2018-06-29 16:20 | NUR ---
Student documentation: I have reviewed and agree with all interventions, assessments performed and documented by Shagufta Hutchinson
--- NOTE | 2018-06-29 17:09 | NUR ---
Pt s/p surgery to right knee. Pt seen at bedside given written and verbal protein education with RD contact information. Pt on CHO controlled diet with documented PO intake 100% throughout LOS meeting nutrient needs. Pt states she drinks a chocolate Ensure Enlive for breakfast at home and requests one with breakfast here and requests no eggs with breakfast. Unfortunately we are currently out of the chocolate flavor which is the only flavor the pt wants, pt agreeable to chocolate MD benson Foote, d/w dietary. Patient's current A1c 6.1 and purely diet controlled, d/w patient information on nutritional management of DM. Will continue to follow. Addendum: 06/29/18 at [address] Amended: Links added.
[2018-06-29 18:00] VITALS: BP 128/60
--- NOTE | 2018-06-29 18:00 | NUR ---
Patient in room ORTHO 4017. I have received report from KELLEE Estrella and had the opportunity to ask questions and assume patient care.
--- NOTE | 2018-06-29 18:05 | NUR ---
Problems reprioritized. Patient report given, questions answered & plan of care reviewed with Pauline GOODSON.
[2018-06-29] MEDS: celeCOXIB 100mg capsule PO SCH (20:19)
[2018-06-29] MEDS: magnesium hydroxide 30ml (MOM) UD suspension PO PRN (20:19)
[2018-06-29] MEDS: sennosides 8.6mg tablet PO SCH (20:20)
[2018-06-29] MEDS: pravastatin 40mg tablet PO SCH (20:24)
[2018-06-29 22:00] VITALS: BP 135/54
[2018-06-29] MEDS: zolpidem 5mg tablet PO PRN (22:06)
[2018-06-30] MEDS: ibuprofen 200mg tablet PO SCH ×3 (00:11→16:22)
[2018-06-30] MEDS: acetaminophen 325mg tablet PO SCH ×2 (02:00→07:54)
[2018-06-30] MEDS: potassium cl 20mEq in 1/2 NS 1,000 ML IV SCH (04:53)
[2018-06-30] MEDS: oxyCODONE IR 5mg (immed. release) tablet PO PRN ×5 (05:16→22:07)
[2018-06-30 05:27] LABS: BASOPHILS # (AUTO) 0.1 X10'3 (0-0.2); BASOPHILS % (AUTO) 0.7 % (0-1); EOSINOPHILS # (AUTO) 0.3 X10'3 (0-0.9); EOSINOPHILS % (AUTO) 3.2 % (0-6); HEMATOCRIT 35.1 % (35.0-45.0); HEMOGLOBIN 11.6 g/dl (12.0-16.0); LYMPHOCYTES # (AUTO) 2.4 X10'3 (1.1-4.8); LYMPHOCYTES % (AUTO) 28.7 % (21-51); MEAN CORPUSCULAR HGB CONC 33.2 g/dL (33.0-36.5); MEAN CORPUSCULAR VOLUME 84.3 FL (78-98); MEAN PLATELET VOLUME 9.7 FL (7.4-10.4); MONOCYTES % (AUTO) 11.9 % (2-12); NEUTROPHILS # (AUTO) 4.7 X10'3 (1.8-7.7); NEUTROPHILS % (AUTO) 55.5 % (42-75); PLATELET COUNT 133 X10'3 (140-440); RED BLOOD COUNT 4.16 X10'6 (4.20-5.60); RED CELL DISTRIBUTION WIDTH 16.3 % (11.5-14.5); WHITE BLOOD COUNT 8.4 X10'3 (4.5-11.0)
[2018-06-30 05:39] LABS: ALBUMIN 2.8 G/DL (3.4-5.0); ANION GAP 6 (8-16); BLOOD UREA NITROGEN 16 MG/DL (7-18); BUN/CREATININE RATIO 18.2 (6.6-38.0); CALCIUM 8.6 MG/DL (8.5-10.1); CHLORIDE 108 MMOL/L (99-107); CREATININE 0.88 MG/DL (0.40-0.90); GLUCOSE 98 MG/DL (70-104); POTASSIUM 4.1 MMOL/L (3.5-5.1); SODIUM 141 MMOL/L (135-145); TOTAL CARBON DIOXIDE 27.5 MMOL/L (24-32); eGFR 65 ML/MIN
[2018-06-30 06:00] VITALS: BP 130/65
--- NOTE | 2018-06-30 06:23 | NUR ---
Problems reprioritized. Patient report given, questions answered & plan of care reviewed with KELLEE Kirkpatrick.
--- NOTE | 2018-06-30 06:43 | NUR ---
I HAVE RECEIVED PATIENT REPORT FROM MANISH GOODSON
[2018-06-30] MEDS ORDERED: NUT.TX.GLUC.INTOLER,LAC-FR,SOY (GLUCERNA) 237 ML PO SCH (07:30)
[2018-06-30] MEDS: HYDROmorphone 1 mg/ml syringe IV PRN ×2 (07:44→11:34)
[2018-06-30] MEDS: buPROPion SR 150mg tablet PO SCH ×2 (07:51→20:57)
[2018-06-30] MEDS: oxybutynin 5mg tablet PO SCH ×2 (07:51→20:58)
[2018-06-30] MEDS: gabapentin 300mg capsule PO SCH ×3 (07:51→20:58)
[2018-06-30] MEDS: aspirin 325mg tablet PO SCH (07:51)
[2018-06-30] MEDS: celeCOXIB 100mg capsule PO SCH (07:55)
--- NOTE | 2018-06-30 07:55 | NUR ---
ewa said okay to dc Celebrex since patient preferred Ibuprofen fro pain.
[2018-06-30] MEDS: lisinopril 20mg tablet PO SCH (07:57)
[2018-06-30] MEDS: mupirocin 2% ointment 22GM TP SCH ×2 (08:00→20:00)
[2018-06-30 09:47] VITALS: BP 147/80
[2018-06-30] MEDS ORDERED: heparin sodium, porcine/PF 100unit/ml 5ML syringe IV ONE (12:25)
[2018-06-30] MEDS ORDERED: acetaminophen 325mg tablet PO PRN (12:55)
--- NOTE | 2018-06-30 13:28 | NUR ---
I SPOKE WITH NAM [employer]IC[employer] BILLER REGARDING DE-ACCESSING PATIENT PARAM-CATH. SHE RECOMMEND THAT WE JUST HEPARIN LOCK PATIENT PORT SINCE PATIENT WITH HAVE IT RE-ACCESSED IN THE MORNING AT [facility] AND THIS WOULD DECREASE INFECTION RISK. I CALLED BERNIE AND SHE AGREED THAT IF THIS IS WHAT NAM RECOMMENDED THEN A HEPARIN LOCK WAS FINE. NAM HEPARIN LOCKED PATIENT AND PUT SILK TAPE ON PARAM-CATH THAT STATED TO ASPIRATE BEFORE USING.
[2018-06-30 14:00] VITALS: BP 152/60
[2018-06-30] MEDS: HYDROmorphone 2mg tablet PO PRN ×2 (14:35→20:58)
--- NOTE | 2018-06-30 16:00 | NUR ---
I released leg brace and patient did her exercises.
--- NOTE | 2018-06-30 16:59 | NUR ---
Student documentation: I have reviewed and agree with all interventions, assessments performed and documented by Shagufta Hutchinson
[2018-06-30 18:00] VITALS: BP 125/66
--- NOTE | 2018-06-30 18:11 | NUR ---
I have given patient report to Pauline GOODSON
--- NOTE | 2018-06-30 18:15 | NUR ---
Patient in room ORTHO 4017. I have received report from KELLEE Kirkpatrick and had the opportunity to ask questions and assume patient care.
[2018-06-30] MEDS: magnesium hydroxide 30ml (MOM) UD suspension PO PRN (20:57)
[2018-06-30] MEDS: sennosides 8.6mg tablet PO SCH (20:58)
[2018-06-30] MEDS: pravastatin 40mg tablet PO SCH (20:58)
[2018-06-30 22:00] VITALS: BP 140/65
[2018-06-30] MEDS: zolpidem 5mg tablet PO PRN (22:06)
[2018-07-01] MEDS: HYDROmorphone 2mg tablet PO PRN (04:55)
[2018-07-01 05:50] LABS: BASOPHILS % (AUTO) 0.5 % (0-1); EOSINOPHILS # (AUTO) 0.4 X10'3 (0-0.9); EOSINOPHILS % (AUTO) 5.5 % (0-6); HEMATOCRIT 36.3 % (35.0-45.0); HEMOGLOBIN 12.1 g/dl (12.0-16.0); LYMPHOCYTES % (AUTO) 29.8 % (21-51); MEAN CORPUSCULAR HEMOGLOBIN 28.2 PG (27.0-31.0); MEAN CORPUSCULAR HGB CONC 33.2 g/dL (33.0-36.5); MEAN CORPUSCULAR VOLUME 84.8 FL (78-98); MEAN PLATELET VOLUME 9.8 FL (7.4-10.4); MONOCYTES # (AUTO) 0.8 X10'3 (0-0.9); MONOCYTES % (AUTO) 12.9 % (2-12); NEUTROPHILS # (AUTO) 3.4 X10'3 (1.8-7.7); NEUTROPHILS % (AUTO) 51.3 % (42-75); PLATELET COUNT 150 X10'3 (140-440); RED BLOOD COUNT 4.28 X10'6 (4.20-5.60); RED CELL DISTRIBUTION WIDTH 16.1 % (11.5-14.5); WHITE BLOOD COUNT 6.6 X10'3 (4.5-11.0)
--- NOTE | 2018-07-01 06:00 | NUR ---
Problems reprioritized. Patient report given, questions answered & plan of care reviewed with KELLEE Kirkpatrick.
[2018-07-01 06:10] VITALS: BP 126/60
--- NOTE | 2018-07-01 06:30 | NUR ---
Patient in room ORTHO 4017. I have received report from Pauline GOODSON and had the opportunity to ask questions and assume patient care.
--- NOTE | 2018-07-01 07:00 | NUR ---
I have given patient report to Dorcas GOODSON at [facility]
[2018-07-01] MEDS: gabapentin 300mg capsule PO SCH (07:39)
[2018-07-01] MEDS: ibuprofen 200mg tablet PO SCH ×2 (07:39)
[2018-07-01] MEDS: aspirin 325mg tablet PO SCH (07:40)
[2018-07-01] MEDS: oxybutynin 5mg tablet PO SCH (07:40)
[2018-07-01] MEDS: oxyCODONE IR 5mg (immed. release) tablet PO PRN (07:40)
[2018-07-01] MEDS: buPROPion SR 150mg tablet PO SCH (07:41)
[2018-07-01 07:42] VITALS: BP_SYST 126
[2018-07-01] MEDS: lisinopril 20mg tablet PO SCH (07:42)
--- NOTE | 2018-07-01 08:15 | NUR ---
Patient was discharged with many belongings and luggage cases with her name on them. She was discharged with noel carranza and was to be taken to [facility] for her IV infusion, and then to go to [facility] for rehab.
== END 2018-07-01 08:30 | DRG 488 ==
LOC: PAS IN 06:54 → ORTHO 4S 14:30 → EDSTATUS 15:15 → ORTHO 4S 06-29 06:55
PROVIDERS: ADMIT Orthopaedic Surgery; ATTEND Orthopaedic Surgery
PROC: 3E0T3BZ Introduction of Anesthetic Agent into Peripheral Nerves and Plexi, Percutaneous Approach (ICD-10-PCS; 2018-06-28)
PROC: 0MQN0ZZ Repair Right Knee Bursa and Ligament, Open Approach (ICD-10-PCS; 2018-06-28)
PROC: 0MNN0ZZ Release Right Knee Bursa and Ligament, Open Approach (ICD-10-PCS; 2018-06-28)
PROC: 0QSD0ZZ Reposition Right Patella, Open Approach (ICD-10-PCS; principal; 2018-06-28 11:08)
PROC: 5A09357 Assistance with Respiratory Ventilation, Less than 24 Consecutive Hours, Continuous Positive Airway Pressure (ICD-10-PCS; 2018-06-29)
PROC: 5A09357 Assistance with Respiratory Ventilation, Less than 24 Consecutive Hours, Continuous Positive Airway Pressure (ICD-10-PCS; 2018-06-30)
DX: S83.001A Unspecified subluxation of right patella, initial encounter (principal); D62 Acute posthemorrhagic anemia; Z96.651 Presence of right artificial knee joint; G47.33 Obstructive sleep apnea (adult) (pediatric); I12.9 Hypertensive chronic kidney disease with stage 1 through stage 4 chronic kidney disease, or unspecified chronic kidney disease; X58.XXXA Exposure to other specified factors, initial encounter; E11.22 Type 2 diabetes mellitus with diabetic chronic kidney disease; G35 Multiple sclerosis; R33.9 Retention of urine, unspecified; N18.3 Chronic kidney disease, stage 3 (moderate); N31.9 Neuromuscular dysfunction of bladder, unspecified; E78.5 Hyperlipidemia, unspecified; F32.9 Major depressive disorder, single episode, unspecified; Z91.040 Latex allergy status; Z79.899 Other long term (current) drug therapy; Y93.89 Activity, other specified; Y92.89 Other specified places as the place of occurrence of the external cause; Y99.8 Other external cause status
CPT/HCPCS: 36415; 80048; 80051; 80053; 81001; 82948; 83036; 85025; 85610; 85730; 87070; 87075; 89051; 97110; 97116; 97162; 97530; A7000; C1758; G0378; J0690; J1170; J1642; J2001; J2175; J2250; J2405; J2704; J2710; J3010; J3370; J3490; J7030; J7120; L1832

== ENCOUNTER 2020-09-05 18:17 | Emergency (ER) | payer MEDICARE ==
[~2020-09-05] VITALS: Ht 152.4 cm; Wt 85.0 kg
[~2020-09-05 18:17] MED LIST changes: +LISI40TA13 PO; -LISI40TA4 PO; -OXYB10TA PO; +OXYB10TA30 PO; -famotidine 20mg tablet PO ONE; -ringers solution, lacted 1,000 ML IV SCH
[2020-09-05] MEDS ORDERED: CefTRIAXone 2gm/D5W 50ml BAG 50 ML IV ONE (18:35)
[2020-09-05] MEDS ORDERED: vancomycin/NS 1 GM ADD-VANTAGE 250 ML IV ONE (18:35)
[2020-09-05 19:29] LABS: BASOPHILS # (AUTO) 0.1 X10'3 (0-0.2); BASOPHILS % (AUTO) 0.7 % (0-1); EOSINOPHILS # (AUTO) 0.2 X10'3 (0-0.9); EOSINOPHILS % (AUTO) 2.2 % (0-6); HEMATOCRIT 43.4 % (35.0-45.0); HEMOGLOBIN 14.3 g/dl (12.0-16.0); LYMPHOCYTES # (AUTO) 2.7 X10'3 (1.1-4.8); LYMPHOCYTES % (AUTO) 31.3 % (21-51); MEAN CORPUSCULAR HEMOGLOBIN 29.6 PG (27.0-31.0); MEAN CORPUSCULAR VOLUME 89.7 FL (78-98); MEAN PLATELET VOLUME 9.6 FL (7.4-10.4); MONOCYTES % (AUTO) 11.4 % (2-12); NEUTROPHILS # (AUTO) 4.6 X10'3 (1.8-7.7); NEUTROPHILS % (AUTO) 54.4 % (42-75); PLATELET COUNT 154 X10'3 (140-440); RED BLOOD COUNT 4.84 X10'6 (4.20-5.60); WHITE BLOOD COUNT 8.5 X10'3 (4.5-11.0)
[2020-09-05 19:35] LABS: ALANINE AMINOTRANSFERASE 27 U/L (12-78); ALBUMIN 3.5 G/DL (3.4-5.0); ALBUMIN/GLOBULIN RATIO 1.3 (1.1-1.5); ALKALINE PHOSPHATASE 103 IU/L (46-116); ANION GAP 8 (8-16); ASPARTATE AMINO TRANSFERASE 26 U/L (10-37); BILIRUBIN,TOTAL 0.4 MG/DL (0.1-1.0); BLOOD UREA NITROGEN 15 MG/DL (7-18); BUN/CREATININE RATIO 17.9 (6.6-38.0); C-REACTIVE PROTEIN 0.31 MG/DL (0.0-0.5); CALCIUM 8.9 MG/DL (8.5-10.1); CHLORIDE 106 MMOL/L (99-107); CREATININE 0.84 MG/DL (0.40-0.90); GLUCOSE 142 MG/DL (70-104); MAGNESIUM 2.1 MG/DL (1.5-2.4); POTASSIUM 4.3 MMOL/L (3.5-5.1); SODIUM 141 MMOL/L (135-145); TOTAL CARBON DIOXIDE 26.8 MMOL/L (24-32); TOTAL PROTEIN 6.3 G/DL (6.4-8.2); eGFR 68 ML/MIN
[2020-09-05 20:44] VITALS: BP 109/69
== END 2020-09-05 20:46 | disposition home or self-care (01) ==
LOC: ER 18:19
DX: G89.18 Other acute postprocedural pain (principal); M25.561 Pain in right knee; I10 Essential (primary) hypertension; E11.9 Type 2 diabetes mellitus without complications; G89.29 Other chronic pain; F32.9 Major depressive disorder, single episode, unspecified; Z86.2 Personal history of diseases of the blood and blood-forming organs and certain disorders involving the immune mechanism; Z90.710 Acquired absence of both cervix and uterus; Z98.890 Other specified postprocedural states; Z91.040 Latex allergy status; Z88.8 Allergy status to other drugs, medicaments and biological substances; Z79.899 Other long term (current) drug therapy
CPT/HCPCS: 36415; 80053; 83605; 83735; 84145; 85025; 85651; 86140; 87040; 99283

== ENCOUNTER 2020-09-05 19:28 | Outpatient (CLI) | payer MEDICARE ==
[2020-09-05 20:58] LABS: APPEARANCE,SYNOVIAL FLUID CLOUDY; COLOR,SYNOVIAL FLUID YELLOW
[2020-09-05 20:59] LABS: SYN RBC 5688 /CU MM (0); SYN WBC 238 /CU MM (0-200)
[2020-09-05 21:46] LABS: LYMPHOCYTES,SYNOVIAL FLUID 86.7 % (0-75); MONOCYTES,SYNOVIAL FLUID 13.3 % (0-0)
== END 2020-09-05 23:59 | disposition home or self-care (01) ==
LOC: LAB 19:28
PROVIDERS: ATTEND Orthopaedic Surgery
DX: M25.861 Other specified joint disorders, right knee (principal); Z96.651 Presence of right artificial knee joint
CPT/HCPCS: 87015; 87070; 87075; 87102; 89051

== ENCOUNTER 2023-08-12 11:13 | Day surgery (SDC) | payer MEDICARE ==
[2023-08-10 10:08] LABS: BASOPHILS % (AUTO) 0.4 % (0-1); EOSINOPHILS # (AUTO) 0.2 X10'3 (0-0.9); EOSINOPHILS % (AUTO) 1.6 % (0-6); LYMPHOCYTES # (AUTO) 3.6 X10'3 (1.1-4.8); LYMPHOCYTES % (AUTO) 34.8 % (21-51); MEAN CORPUSCULAR HEMOGLOBIN 28.9 PG (27.0-31.0); MEAN CORPUSCULAR HGB CONC 33.3 g/dL (33.0-36.5); MEAN CORPUSCULAR VOLUME 86.6 FL (78-98); MEAN PLATELET VOLUME 8.3 FL (7.4-10.4); MONOCYTES # (AUTO) 0.9 X10'3 (0-0.9); NEUTROPHILS # (AUTO) 5.6 X10'3 (1.8-7.7); NEUTROPHILS % (AUTO) 54.2 % (42-75); PRE OP HEMATOCRIT 44.5 % (35.0-45.0); PRE OP HEMOGLOBIN 14.8 g/dL (12.0-16.0); PRE OP PLATELET COUNT 178 X10'3 (140-440); PRE OP WHITE BLOOD COUNT 10.4 10'3 (4.8-10.8); RED BLOOD COUNT 5.14 X10'6 (4.20-5.60); RED CELL DISTRIBUTION WIDTH 15.6 % (11.5-14.5)
[2023-08-10 10:34] LABS: ALBUMIN 3.5 G/DL (3.4-5.0); ALBUMIN/GLOBULIN RATIO 1.1 (1.1-1.5); ALKALINE PHOSPHATASE 115 IU/L (46-116); BLOOD UREA NITROGEN 15 MG/DL (7-18); CHLORIDE 103 MMOL/L (99-107); CREATININE 1.07 MG/DL (0.40-0.90); PRE OP ALT 21 U/L (30-65); PRE OP ANION GAP 5 (8-16); PRE OP AST 15 U/L (10-37); PRE OP BILIRUB, TOTAL 0.6 MG/DL (0.0-1.0); PRE OP POTASSIUM 3.9 MMOL/L (3.4-5.1); PRE OP SODIUM 140 MMOL/L (135-145); TOTAL CARBON DIOXIDE 32.4 MMOL/L (24-32); TOTAL PROTEIN 6.8 G/DL (6.4-8.2); eGFR 51 ML/MIN
[2023-08-10 12:05] LABS: PRE OP GLUCOSE 108 MG/DL (70-104)
[~2023-08-12] VITALS: Ht 152.4 cm; Wt 96.3 kg
[2023-08-12] VITALS (10 sets, daily range): BP systolic 121–153; BP diastolic 63–93; PULSE 48–72; RESP 13–20; TEMP 97.8; O2SAT 93–100
[2023-08-12] MEDS: ringers solution, lacted 1,000 ML IV SCH (05:30)
[2023-08-12] MEDS: cefazolin 2gm/D5W 100mL 100 ML IV ONE (05:30)
[~2023-08-12 11:13] MED LIST changes: +BUPR-564 PO; -BUPR300T86 PO; +GABA600T13 PO; -HYDR-4353 PO; -IBUP-1985 PO; +METF-1203 PO; -MUPI22OI30 TP; -OXYB10TA30 PO; +RIVA20TA PO
[2023-08-12] MEDS: famotidine 20mg tablet PO ONE (11:38)
[2023-08-12] MEDS ORDERED: heparin 1,000unit/ml 10ml vial 10 ML ONE (12:14)
[2023-08-12] MEDS ORDERED: sevoflurane 250ml liquid IH ONE (12:30)
[2023-08-12] MEDS: LIDOcaine/PRILOcaine 5gm cream TP ONE (12:31)
[2023-08-12] MEDS ORDERED: midazolam 1 mg/ML 2ml injection ONE (12:37)
[2023-08-12] MEDS ORDERED: fentaNYL/PF 50MCG/1 ML 2ML syringe ONE (12:37)
[2023-08-12] MEDS ORDERED: ondansetron/PF 4mg/2ml inj ONE (12:47)
[2023-08-12] MEDS ORDERED: labetalol 20mg/4ml (5mg/ml) syringe IV ONE (12:47)
[2023-08-12] MEDS ORDERED: LIDOcaine 2% (20mg/ml) 5ml vial ONE (12:47)
[2023-08-12] MEDS ORDERED: propofol inj 20 ML IV ONE (12:47)
[2023-08-12] MEDS ORDERED: acetaminophen 1,000mg/100ml IV 100 ML IV ONE (12:49)
[2023-08-12] MEDS ORDERED: rocuronium 10mg/ml inj IV ONE (12:49)
[2023-08-12] MEDS ORDERED: labetalol 20mg/4ml (5mg/ml) syringe IV PRN (13:15)
[2023-08-12] MEDS ORDERED: ringers solution, lacted 1,000 ML IV SCH (13:15)
[2023-08-12] MEDS ORDERED: ondansetron/PF 4mg/2ml inj IV PRN (13:15)
[2023-08-12] MEDS ORDERED: fentaNYL/PF 50MCG/1 ML 2ML syringe IV PRN (13:15)
[2023-08-12] MEDS ORDERED: hydrALAZINE 20mg/ml inj. IV PRN (13:15)
[2023-08-12] MEDS ORDERED: morphine 2 MG/ML inj. syringe IV PRN (13:15)
[2023-08-12] MEDS: BUPIVAcaine 2.5mg/ml inj 50ml vial (contains preservative) ONE (13:33)
[2023-08-12] MEDS: LIDOcaine 1% 30ml preserv. free vial ONE (13:33)
[2023-08-12] MEDS: methylene blue (5mg/ml) 50mg/10ml ampul IV ONE (13:34)
[2023-08-12] MEDS: BUPIVACAINE liposomal/PF 13.3 MG/ML vial IM ONE (13:56)
[2023-08-12] MEDS: fentaNYL/PF 50MCG/1 ML 2ML syringe IV PRN (14:37)
[2023-08-12] MEDS: morphine 4 MG/ML inj SYRINge IV PRN (15:03)
== END 2023-08-12 15:48 | disposition home or self-care (01) ==
LOC: PAS 11:13
PROVIDERS: ATTEND Surgery
DX: C50.411 Malignant neoplasm of upper-outer quadrant of right female breast (principal); I10 Essential (primary) hypertension; E11.9 Type 2 diabetes mellitus without complications; I48.91 Unspecified atrial fibrillation; F32.A Depression, unspecified; Z79.01 Long term (current) use of anticoagulants; Z79.84 Long term (current) use of oral hypoglycemic drugs; Z79.899 Other long term (current) drug therapy; Z96.651 Presence of right artificial knee joint; Z98.891 History of uterine scar from previous surgery; Z98.890 Other specified postprocedural states; Z88.8 Allergy status to other drugs, medicaments and biological substances; Z91.018 Allergy to other foods
CPT/HCPCS: 19301; 36415; 38525; 38900; 76098; 80053; 85025; A6258; C9290; J0131; J0690; J1100; J1644; J2250; J2270; J2405; J2704; J2710; J3010; J3490; J7030; J7120; Q9968; Z7506; Z7508; Z7512; 88307; 88342; A4212; A4215; A4615; A4618; A6446; A6449; A7000

== ENCOUNTER 2024-04-20 06:59 | Inpatient (IN) | payer MEDICARE ==
[2024-04-14 16:11] LABS: BILIRUBIN,URINE NEGATIVE (Neg); CLARITY,URINE CLOUDY (Clear); COLOR,URINE YELLOW (Yellow); GLUCOSE, URINE NEGATIVE (Neg); KETONES,URINE NEGATIVE (Neg); LEUKOCYTE ESTERASE ,URINE MODERATE (Neg); NITRITES, URINE POSITIVE (Neg); OCCULT BLOOD,URINE NEGATIVE (Neg); PROTEIN,URINE NEGATIVE (Neg)
[2024-04-14 16:17] LABS: UA COLLECTION TYPE CLN CATCH MIDSTREAM
[2024-04-14 16:18] LABS: BACTERIA,URINE 4+ /HPF (Neg); RBC,URINE 0-2 /HPF (0-2); WBC,URINE 50-100 /HPF (0-4)
[2024-04-14 16:19] LABS: MUCUS STRANDS NONE SEEN /LPF (Neg); SQUAMOUS EPITHELIAL CELL,UR FEW /LPF (FEW); WBC CLUMPS,URINE MODERATE /HPF (NEGATIVE)
[2024-04-14 16:20] LABS: BASOPHILS # (AUTO) 0.1 X10'3 (0-0.2); BASOPHILS % (AUTO) 0.8 % (0-1); EOSINOPHILS # (AUTO) 0.1 X10'3 (0-0.9); EOSINOPHILS % (AUTO) 1.4 % (0-6); LYMPHOCYTES # (AUTO) 1.3 X10'3 (1.1-4.8); LYMPHOCYTES % (AUTO) 19.1 % (21-51); MEAN CORPUSCULAR HEMOGLOBIN 29.8 PG (27.0-31.0); MEAN CORPUSCULAR VOLUME 87.6 FL (78-98); MEAN PLATELET VOLUME 8.8 FL (7.4-10.4); MONOCYTES # (AUTO) 0.7 X10'3 (0-0.9); MONOCYTES % (AUTO) 9.9 % (2-12); NEUTROPHILS # (AUTO) 4.8 X10'3 (1.8-7.7); NEUTROPHILS % (AUTO) 68.8 % (42-75); PRE OP HEMATOCRIT 43.6 % (35.0-45.0); PRE OP HEMOGLOBIN 14.8 g/dL (12.0-16.0); PRE OP PLATELET COUNT 172 X10'3 (140-440); RED BLOOD COUNT 4.97 X10'6 (4.20-5.60); RED CELL DISTRIBUTION WIDTH 17.6 % (11.5-14.5)
[2024-04-14 16:24] LABS: PRE OP INR 1.1 INR; PRE OP PROTIME 11.4 SECONDS (9.0-12.0)
[2024-04-14 16:26] LABS: ALBUMIN 3.7 G/DL (3.4-5.0); ALBUMIN/GLOBULIN RATIO 1.1 (1.1-1.5); ALKALINE PHOSPHATASE 89 IU/L (46-116); BLOOD UREA NITROGEN 16 MG/DL (7-18); BUN/CREATININE RATIO 15.5 (10.0-20.0); CHLORIDE 107 MMOL/L (99-107); CREATININE 1.03 MG/DL (0.40-0.90); PRE OP ALT 26 U/L (30-65); PRE OP ANION GAP 6 (8-16); PRE OP AST 20 U/L (10-37); PRE OP BILIRUB, TOTAL 0.8 MG/DL (0.0-1.0); PRE OP GLUCOSE 92 MG/DL (70-104); PRE OP POTASSIUM 4.1 MMOL/L (3.4-5.1); PRE OP SODIUM 142 MMOL/L (135-145); TOTAL CARBON DIOXIDE 28.7 MMOL/L (24-32); eGFR 53 ML/MIN
[2024-04-14 16:48] LABS: HEMOGLOBIN A1C 5.7 % (4.5-6.2)
[2024-04-19] MEDS: DOCUMENT DATE & TIME OF BETA-BLOCKER PO ONE (05:30)
[2024-04-19] MEDS: ondansetron/PF 4mg/2ml inj IV ONE (10:18)
[~2024-04-20] VITALS: Ht 152.4 cm; Wt 92.1 kg
[2024-04-20] VITALS (22 sets, daily range): BP systolic 99–186; BP diastolic 49–101; PULSE 55–87; RESP 11–19; TEMP 97.2–98.5; O2SAT 94–100
[2024-04-20] MEDS: ceFAZolin 2gm in dextrose, iso 50 ML IV ONE (05:30)
[~2024-04-20 06:59] MED LIST changes: +ALB0.5UD NEB; +ASCO100031 PO; -BUPR-564 PO; +CHOL200080 PO; +D-MA500C PO; +GABA-1405 PO; -GABA600T13 PO; +LACT1CAP65 PO; +METO-395 PO; +MODA200T48 PO; -NATA300V2 IV; +OMEG100037 PO; +TAMO20TA4 PO; +VENL75TA4 PO; +ondansetron/PF 4mg/2ml inj IV PRN
[2024-04-20] MEDS ORDERED: LIDOcaine 1% (10mg/ml) 2ml vial ONE (07:21)
[2024-04-20] MEDS ORDERED: protamine sulfate 10mg/ml inj. ONE (07:52)
[2024-04-20] MEDS: VANCOMYCIN 1,500MG inj. 1,500 MG in normal saline 500ml IV soln 300 ML IV ONE (08:11)
[2024-04-20] MEDS: famotidine 20mg tablet PO ONE (08:11)
[2024-04-20] MEDS: ringers solution, lacted 1,000 ML IV SCH ×2 (08:12→10:28)
[2024-04-20] MEDS ORDERED: morphine 2 MG/ML inj. syringe IV PRN (08:45)
[2024-04-20] MEDS ORDERED: proCHLORperazine 10 MG/2 ml inj IV PRN ×2 (08:45→09:50)
[2024-04-20] MEDS ORDERED: morphine 4 MG/ML inj SYRINge IV PRN (08:45)
[2024-04-20] MEDS ORDERED: meperidine/PF 25mg/ml syringe IV PRN (08:45)
[2024-04-20] MEDS ORDERED: HYDROmorphone/PF 0.2 MG/ML SYRINGE IV PRN ×2 (08:45)
[2024-04-20] MEDS ORDERED: ondansetron/PF 4mg/2ml inj IV PRN ×2 (08:45→09:50)
[2024-04-20] MEDS ORDERED: iohexol 350 MG/ML 50ML vial IV ONE (08:49)
[2024-04-20] MEDS ORDERED: sevoflurane 250ml liquid IH ONE (08:54)
[2024-04-20] MEDS ORDERED: iohexol 350MG/ML 100ml bottle IV ONE (08:58)
[2024-04-20] MEDS ORDERED: fentaNYL/PF 50MCG/1 ML 2ML syringe ONE (09:01)
[2024-04-20] MEDS ORDERED: propofol inj 20 ML IV ONE (09:24)
[2024-04-20] MEDS ORDERED: midazolam 1 mg/ML 2ml injection ONE (09:24)
[2024-04-20] MEDS ORDERED: dexamethasone sod phosphate 4mg/ml inj. ONE (09:24)
[2024-04-20] MEDS ORDERED: ondansetron/PF 4mg/2ml inj ONE (09:24)
[2024-04-20] MEDS ORDERED: heparin 1,000unit/ml 10ml vial 10 ML ONE (09:24)
[2024-04-20] MEDS ORDERED: LIDOcaine 1%/PF 5ML 10 MG/ML VIAL ONE (09:24)
[2024-04-20] MEDS ORDERED: esmolol inj. 10 ML IV ONE (09:30)
[2024-04-20] MEDS ORDERED: magnesium sulf-water 2g/50mL 50 ML IV PRN (09:50)
[2024-04-20] MEDS ORDERED: potassium Cl 20 mEq SR tablet PO PRN (09:50)
[2024-04-20] MEDS ORDERED: docusate sod 100mg capsule PO PRN (09:50)
[2024-04-20] MEDS ORDERED: potassium Cl 40MEQ/270ML bag 250 ML IV PRN (09:50)
[2024-04-20] MEDS ORDERED: dextrose 50%-water 50ml dispensing syringe IV PRN ×2 (09:50)
[2024-04-20] MEDS ORDERED: ALPRAZolam 0.25mg tablet PO PRN (09:50)
[2024-04-20] MEDS ORDERED: DEXTROSE 15 GM of carb/4 tabs (each vial/BOTTLE has 4 tablets) PO PRN ×2 (09:50)
[2024-04-20] MEDS ORDERED: diphenhydrAMINE 25mg capsule PO PRN (09:50)
[2024-04-20] MEDS ORDERED: pantoprazole 40mg Tablet.DR PO PRN (09:50)
[2024-04-20] MEDS ORDERED: potassium Cl 20mEq/100mL bag 100 ML IV PRN (09:50)
[2024-04-20] MEDS ORDERED: HYDROcodone/acetaminophen 5mg/325mg tablet PO PRN (09:50)
[2024-04-20] MEDS ORDERED: labetalol 20mg/4ml (5mg/ml) syringe IV PRN (09:50)
[2024-04-20] MEDS ORDERED: magnesium sulf-water 4G/100mL 100 ML IV PRN (09:50)
[2024-04-20] MEDS ORDERED: potassium CL 10mEq/100ml bag 100 ML IV PRN (09:50)
[2024-04-20] MEDS ORDERED: acetaminophen 325mg tablet PO PRN (09:50)
[2024-04-20] MEDS ORDERED: potassium Cl 40MEQ/1/2NS 520ml 520 ML IV PRN (09:50)
[2024-04-20] MEDS ORDERED: glucagon, human recombinant 1mg kit SUBCUT PRN (09:50)
[2024-04-20] MEDS: acetaminophen 1,000mg/100ml IV 100 ML IV ONE (10:30)
[2024-04-20] MEDS ORDERED: albuterol 2.5 MG/3 ML nebule NEB PRN (12:00)
[2024-04-20] MEDS ORDERED: INSULIN LISPRO 100 UNIT/ML INSULN.PEN MULTI-DOSE SQ SCH (12:00)
[2024-04-20] MEDS: INSULIN LISPRO 100 UNIT/ML INSULN.PEN MULTI-DOSE SQ SCH (12:00)
[2024-04-20] MEDS ORDERED: heparin sodium, porcine/PF 100unit/ml 5ML syringe ONE (12:43)
[2024-04-20] MEDS: normal saline 1000ml 1,000 ML IV SCH (12:47)
[2024-04-20] MEDS: hydrALAZINE 20mg/ml inj. IV PRN (13:55)
[2024-04-20] MEDS: ceFAZolin/D5W- 1GM premix 50 ML IV SCH (16:08)
[2024-04-20] MEDS: sod chloride 0.9% 10ml flush syringe IV SCH (16:08)
[2024-04-20] MEDS: rivaroxaban 20mg tablet PO SCH (17:10)
[2024-04-20] MEDS: nystatin 15 GM powder TP SCH (17:19)
[2024-04-20] MEDS ORDERED: nystatin 15 GM powder TP SCH ×2 (21:00)
[2024-04-20] MEDS: VANCOMYCIN 1GM 200ML H20 (PEG) 200 ML IV SCH (21:38)
[2024-04-20] MEDS: atorvastatin 10mg tablet PO SCH (21:40)
[2024-04-20] MEDS: zolpidem 5mg tablet PO PRN (21:40)
[2024-04-20] MEDS: gabapentin 300mg capsule PO SCH (21:40)
[2024-04-21 02:00] VITALS: BP 134/65; PULSE 78; RESP 15; TEMP 98.7; O2SAT 96
[2024-04-21 06:00] VITALS: BP 138/69; PULSE 59; RESP 20; TEMP 97.9; O2SAT 97
[2024-04-21 07:49] LABS: BASOPHILS % (AUTO) 0.4 % (0-1); EOSINOPHILS % (AUTO) 0.1 % (0-6); HEMATOCRIT 40.1 % (35.0-45.0); HEMOGLOBIN 13.4 g/dl (12.0-16.0); LYMPHOCYTES # (AUTO) 1.6 X10'3 (1.1-4.8); LYMPHOCYTES % (AUTO) 14.3 % (21-51); MEAN CORPUSCULAR HEMOGLOBIN 30.1 PG (27.0-31.0); MEAN CORPUSCULAR HGB CONC 33.5 g/dL (33.0-36.5); MEAN CORPUSCULAR VOLUME 89.9 FL (78-98); MEAN PLATELET VOLUME 9.2 FL (7.4-10.4); MONOCYTES % (AUTO) 8.8 % (2-12); NEUTROPHILS # (AUTO) 8.3 X10'3 (1.8-7.7); NEUTROPHILS % (AUTO) 76.4 % (42-75); PLATELET COUNT 140 X10'3 (140-440); RED BLOOD COUNT 4.46 X10'6 (4.20-5.60); WHITE BLOOD COUNT 10.9 X10'3 (4.5-11.0)
[2024-04-21] MEDS: cholecalciferol (vitamin D3) 1,000 unit (25mcg) tablet PO SCH (07:57)
[2024-04-21] MEDS: lisinopril 20mg tablet PO SCH (07:57)
[2024-04-21] MEDS: venlafaxine 37.5mg tablet PO SCH (07:58)
[2024-04-21] MEDS: tamoxifen 10mg tablet PO SCH (07:59)
[2024-04-21] MEDS: lactobacillus rhamnosus 10,000 MMU CELLS/CAPSULE PO SCH (08:00)
[2024-04-21] MEDS: metoprolol succinate 25mg (24-HOUR) SR. Tablet PO SCH (08:00)
[2024-04-21 08:06] LABS: INR 1.2 INR
[2024-04-21 08:55] VITALS: RESP 23; O2SAT 97
[2024-04-21 09:03] LABS: ALANINE AMINOTRANSFERASE 15 U/L (12-78); ALKALINE PHOSPHATASE 62 IU/L (46-116); ANION GAP 6 (8-16); ASPARTATE AMINO TRANSFERASE 14 U/L (10-37); BILIRUBIN,TOTAL 0.6 MG/DL (0.1-1.0); BLOOD UREA NITROGEN 18 MG/DL (7-18); BUN/CREATININE RATIO 19.1 (10.0-20.0); CALCIUM 8.6 MG/DL (8.5-10.1); CHLORIDE 110 MMOL/L (99-107); CREATININE 0.94 MG/DL (0.40-0.90); GLUCOSE 108 MG/DL (70-104); MAGNESIUM 2.1 MG/DL (1.5-2.4); PRO BRAIN NATRIURETIC PEPTIDE 860 PG/ML (0-125); SODIUM 145 MMOL/L (135-145); TOTAL CARBON DIOXIDE 29.4 MMOL/L (24-32); TOTAL PROTEIN 5.9 G/DL (6.4-8.2); eCRCL 41 ML/MIN; eGFR 59 ML/MIN
[2024-04-21 10:54] VITALS: BP 176/82; PULSE 70; RESP 16; TEMP 97.8; O2SAT 99
[2024-04-21 11:26] VITALS: BP_SYST 177; PULSE 72
== END 2024-04-21 13:53 | disposition home or self-care (01) | DRG 274 ==
LOC: PAS IN 06:59 → PCU 3S 11:48
PROVIDERS: ADMIT Student in an Organized Health Care Education/Training Program; ATTEND Student in an Organized Health Care Education/Training Program
PROC: B24BZZ4 Ultrasonography of Heart with Aorta, Transesophageal (ICD-10-PCS; 2024-04-20)
PROC: 02L73DK Occlusion of Left Atrial Appendage with Intraluminal Device, Percutaneous Approach (ICD-10-PCS; principal; 2024-04-20 08:54)
DX: I48.91 Unspecified atrial fibrillation (principal); Z00.6 Encounter for examination for normal comparison and control in clinical research program; I10 Essential (primary) hypertension; E11.9 Type 2 diabetes mellitus without complications; Z91.040 Latex allergy status; Z91.09 Other allergy status, other than to drugs and biological substances
CPT/HCPCS: 33340; 36415; 71045; 71046; 76937; 80053; 81001; 82948; 83036; 83735; 83880; 85025; 85347; 85610; 85730; 86885; 86900; 86901; 86920; 87077; 87081; 87088; 87186; 93005; 93308; 93312; 93325; A4615; A4618; A6258; A6402; A6449; C1760; C1889; C1893; C1894; G0378; J0131; J0360; J0690; J1100; J1642; J1644; J1815; J2003; J2250; J2405; J2704; J2720; J3010; J3370; J3372; J3490; J7030; J7040; J7120; Q9967

== ENCOUNTER 2024-05-30 10:52 | Day surgery (SDC) | payer MEDICARE ==
[2024-05-30] VITALS (10 sets, daily range): BP systolic 134–203; BP diastolic 76–136; PULSE 63–77; RESP 13–19; TEMP 98.3; O2SAT 96–99
[~2024-05-30] VITALS: Ht 152.4 cm; Wt 94.5 kg
[~2024-05-30 10:52] MED LIST changes: -ondansetron/PF 4mg/2ml inj IV PRN
[2024-05-30] MEDS ORDERED: CHOL20002 PO (12:03)
[2024-05-30] MEDS ORDERED: LACT1TAB15 PO (12:03)
[2024-05-30] MEDS ORDERED: ANAS1TAB10 PO (12:03)
[2024-05-30] MEDS ORDERED: VITC500T PO (12:03)
[2024-05-30] MEDS ORDERED: D MANNOSE (12:03)
[2024-05-30 12:05] LABS: BASOPHILS % (AUTO) 0.6 % (0-1); EOSINOPHILS # (AUTO) 0.1 X10'3 (0-0.9); EOSINOPHILS % (AUTO) 0.9 % (0-6); HEMATOCRIT 45.6 % (35.0-45.0); HEMOGLOBIN 15.3 g/dl (12.0-16.0); LYMPHOCYTES # (AUTO) 0.9 X10'3 (1.1-4.8); LYMPHOCYTES % (AUTO) 14.9 % (21-51); MEAN CORPUSCULAR HEMOGLOBIN 30.2 PG (27.0-31.0); MEAN CORPUSCULAR HGB CONC 33.5 g/dL (33.0-36.5); MEAN CORPUSCULAR VOLUME 90.3 FL (78-98); MEAN PLATELET VOLUME 8.7 FL (7.4-10.4); MONOCYTES # (AUTO) 0.5 X10'3 (0-0.9); MONOCYTES % (AUTO) 8.3 % (2-12); NEUTROPHILS # (AUTO) 4.7 X10'3 (1.8-7.7); NEUTROPHILS % (AUTO) 75.3 % (42-75); PLATELET COUNT 200 X10'3 (140-440); RED BLOOD COUNT 5.05 X10'6 (4.20-5.60); RED CELL DISTRIBUTION WIDTH 14.9 % (11.5-14.5); WHITE BLOOD COUNT 6.2 X10'3 (4.5-11.0)
[2024-05-30 12:12] LABS: ALBUMIN 3.5 G/DL (3.4-5.0); ANION GAP 8 (8-16); BLOOD UREA NITROGEN 16 MG/DL (7-18); CALCIUM 9.1 MG/DL (8.5-10.1); CHLORIDE 105 MMOL/L (99-107); CREATININE 0.94 MG/DL (0.40-0.90); GLUCOSE 118 MG/DL (70-104); POTASSIUM 3.8 MMOL/L (3.5-5.1); SODIUM 139 MMOL/L (135-145); TOTAL CARBON DIOXIDE 26.5 MMOL/L (24-32); eCRCL 41 ML/MIN; eGFR 59 ML/MIN
[2024-05-30 12:22] LABS: APTT 25 SECONDS (22-32)
[2024-05-30] MEDS: fentaNYL/PF 50MCG/1 ML 2ML syringe IV ONE (15:38)
[2024-05-30] MEDS: MIDAZolam 1mg/ml 10ml vial IV ONE (15:38)
[2024-05-30] MEDS ORDERED: CLOP75TA34 PO (15:53)
[2024-05-30] MEDS ORDERED: ASPI-1397 PO (15:53)
== END 2024-05-30 16:40 | disposition home or self-care (01) ==
LOC: SSTAY O 10:52
PROVIDERS: ATTEND Student in an Organized Health Care Education/Training Program
DX: I48.91 Unspecified atrial fibrillation (principal); I10 Essential (primary) hypertension; E11.9 Type 2 diabetes mellitus without complications; Z85.3 Personal history of malignant neoplasm of breast; I05.0 Rheumatic mitral stenosis
CPT/HCPCS: 36415; 80048; 82948; 85025; 85610; 85730; 93312; 93325; J2250; J3010; J7030